=== PATIENT | male | born 1945 | race Caucasian/White ===

== ENCOUNTER 2018-12-20 09:17 | Inpatient (IN) | payer MEDICARE, SELFPAY ==
[2018-12-20 10:07] LABS: #Eosinphils 0.1 thou/uL (0.0-0.7); #Monocytes 0.9 thou/uL (0.11-0.59); %Basophils 0.2 % (0.0-1.0); %Eosinophils 0.7 % (0.0-10.0); %Lymphocytes 9.2 % (21.0-51.0); %Monocytes 8.1 % (0.0-10.0); %Neutrophils 81.8 % (42.0-75.0); Hemoglobin 12.5 g/dL (14.0-18.0); Mean Corpuscular Hemoglobin 32.3 pg (27.0-31.0); Mean Corpuscular Volume 97.8 fL (78.0-98.0); Mean Platelet Volume 7.3 fL (7.4-10.4); Platelet Count 346 thou/uL (130-400); RBC Distribution Width 12.4 % (11.5-14.5); Red Blood Cell (RBC) Count 3.87 mill/uL (4.70-6.10); White Blood Cell (WBC) Count 11.1 thou/uL (4.8-10.8)
[2018-12-20 10:28] LABS: ALT (SGPT) 7 U/L (8-55); AST (SGOT) 14 U/L (5-34); Albumin 3.5 g/dL (3.4-4.8); Alkaline Phosphatase 94 U/L (40-110); Anion Gap 17 mmol/L (10-20); BUN (Urea Nitrogen) 18 mg/dL (8.4-25.7); Bilirubin, Total 0.6 mg/dL (0.2-1.2); Calc. Creatinine Clearance 0 mL/min (70-130); Calcium 9.1 mg/dL (7.8-10.44); Carbon Dioxide 21 mmol/L (23-31); Chloride 104 mmol/L (98-107); Estimated GFR-MDRD 73; Globulin 3.8 g/dL (2.4-3.5); Glucose 86 mg/dL (83-110); Potassium 3.8 mmol/L (3.5-5.1); Protein, Total 7.3 g/dL (5.8-8.1); Sodium 138 mmol/L (136-145)
--- NOTE | 2018-12-20 11:01 | RAD ---
PORTABLE CHEST 1 VIEW: Date: 12/20/18 Time: 1003 hours HISTORY: Cough. FINDINGS/IMPRESSION: The heart size is prominent. There is elevation of the right hemidiaphragm. No lobar consolidation, p neumothoraces, vinay pulmonary edema, or pleural effusions are identified. POS: [facility]
--- NOTE | 2018-12-20 11:02 | RAD ---
RIGHT FOOT 3 VIEWS: Date: 12/20/18 HISTORY: Right foot pain. FINDINGS/IMPRESSION: No fracture, dislocation, or bony destruction is seen. There are posterior and plantar calcaneal spur s. POS: [facility]
--- NOTE | 2018-12-20 11:04 | RAD ---
LEFT FOOT 3 VIEWS: HISTORY: Left foot pain. FINDINGS/IMPRESSION: No fracture, dislocation, or bony destruction is seen. POS: [facility]
[2018-12-20] MEDS ORDERED: Piperacillin/Tazobactam 4.5 GM VIAL ONE (11:32)
[2018-12-20] MEDS ORDERED: Sodium Chloride 0.9% 100 ML ONE (11:32)
[2018-12-20] MEDS ORDERED: HYDROcodone/Acetaminophen 5/325 mg Tablet ONE (12:11)
[2018-12-20 13:19] VITALS: BMI 47.3
[2018-12-20] MEDS ORDERED: Ondansetron PF 4 MG/2 ML Vial IVP PRN (13:42)
[2018-12-20] MEDS ORDERED: HYDROcodone/Acetaminophen 5/325 mg Tablet PO PRN ×2 (13:42)
[2018-12-20] MEDS ORDERED: Acetaminophen 325 MG TAB PO PRN ×2 (13:42→14:15)
[2018-12-20] MEDS ORDERED: Ondansetron ODT 4 MG TAB SL PRN (13:42)
[2018-12-20 14:13] LABS: Lactic Acid 1.8 mmol/L (0.5-2.2)
[2018-12-20] MEDS ORDERED: Bisacodyl 10 MG SUPP PR PRN (14:15)
[2018-12-20] MEDS ORDERED: Morphine 2 MG/ML SYRINGE SLOW IVP PRN ×2 (14:15→17:13)
[2018-12-20] MEDS ORDERED: Guaifenesin DM 100-10/5 ML UDCUP PO PRN (14:15)
[2018-12-20] MEDS ORDERED: Senokot S 8.6-50 MG TAB PO PRN (14:15)
--- NOTE | 2018-12-20 15:20 | CT ---
CT of the lumbar spine: 12/20/2018 COMPARISON: None HISTORY: Fall 2 weeks ago, back pain, difficulty ambulating TECHNIQUE: Axial CT imaging at 2.5 mm intervals through the lumbar spine without contrast. Coronal an d sagittal reformatted imaging obtained. FINDINGS: Evaluation for central canal and/or neural foraminal stenosis is limited on routine CT exam ination. There is multifocal scattered atherosclerotic calcification of the abdominal aorta and its branches. No anterolisthesis or retrolisthesis is noted within the lumbar spine. The bones are diffusely demineralized. Age-indeterminate superior endplate fracture of T12 noted with approximately 40% loss of vertebral rhonda dy height centrally. L1 vertebral body appears unremarkable. There is a vacuum disc at L1-2. There is a age-indeterminate burst fracture of L2 with mild retropulsion of osseous fragments into the cent ral canal and probable mild central canal stenosis. There is approximately 40% loss of vertebral body height centrally at the L2 level. Age indeterminant anterior wedge compression fracture of L3 noted with approximately 45% loss of vert ebral body height anteriorly. Vacuum disc formation noted at L2-3 and L3-4. Age indeterminant burst fracture of L4 vertebral body noted with minimal retropulsion and approximate ly 33% loss of vertebral body height anteriorly. Minimal central canal stenosis suspected. Vacuum disc formation noted at L4-5. Age indeterminant burst fracture of L5 noted with minimal osseou s retropulsion and approximately 20% loss of vertebral body height anteriorly. There is multilevel lower lumbar spine facet hypertrophy, most prominent at L3-4, L4-5, and L5-S1 with bilateral neural f oraminal stenosis, right greater than left. IMPRESSION: Numerous age indeterminant spinal fractures as detailed above. Significant multilevel deg enerative change. To evaluate for underlying central canal and/or neural foraminal stenosis as well as to evaluate acuity of fracture deformities, lumbar spine MRI is suggested. Transcribed Date/Time: 12/20/2018 3:34 PM
--- NOTE | 2018-12-20 15:25 | CT ---
CT OF THE THORACIC SPINE: DATE: 12/20/2018. COMPARISON: None. HISTORY: Fall 2 weeks ago, difficulty ambulating. TECHNIQUE: Axial CT imaging at 2 mm intervals through the thoracic spine without contrast. Coronal and sagittal reformatted imaging obtained. FINDINGS: Evaluation for central canal and/or neural foraminal stenosis is limited on routine CT examination. There is an age-indeterminate mild superior endplate fracture of the T12 vertebral body. No significa nt anterolisthesis or retrolisthesis is seen within the thoracic spine. The imaged lung parenchyma appears grossly unremarkable. There is marked elevation of the right hemidiaphragm, only partially imaged on this exam. There is sc attered atherosclerotic calcification of the aortic arch and the descending thoracic aorta. There is multilevel mid and lower thoracic spine osteophyte formation laterally on the right, most pr ominent at the T6-7 through T9-10 levels. No discrete worrisome lytic or blastic bone lesion is seen. There is no osseous cause of significant central canal or neural foraminal stenosis within the thoracic spine. IMPRESSION: Age indeterminant mild superior endplate fracture of T12. Transcribed Date/Time: 12/20/2018 3:31 PM
--- NOTE | 2018-12-20 16:03 | ULT ---
Bilateral lower extremity arterial Doppler ultrasound: 12/20/2018 COMPARISON: None HISTORY: Peripheral vascular disease TECHNIQUE: Multiplanar grayscale sonographic imaging of the arterial structures of bilateral lower ex tremities obtained with color flow and spectral analysis FINDINGS: There are abnormal monophasic waveforms noted within bilateral CENTER PUNCH OPERATOR, profunda femoral artery , SFA, popliteal artery, JEN, STRAP BUCKLER, and DPA. VESSEL PEAK SYSTOLIC VELOCITY (cm/s) RIght CENTER PUNCH OPERATOR 142 Profunda femoral artery 68 SFA proximal 95 SFA mid 134 SFA distal 91 Popliteal artery 34 JEN 79 STRAP BUCKLER 81 DPA 85 Left CENTER PUNCH OPERATOR 215 Profunda femoral artery 92 SFA proximal 141 SFA mid 85 SFA distal 84 Popliteal artery 55 JEN 76 STRAP BUCKLER 69 DPA 85 IMPRESSION: Arterial structures of bilateral lower extremity is are patent. Abnormal monophasic wavef orms are noted throughout both lower extremity suggesting upstream hemodynamically significant stenosis, which could be within the pelvis or the abdominal aorta. Recommend CT angiogram of the abdo men, pelvis, and bilateral lower extremities utilizing a CT runoff protocol. Transcribed Date/Time: 12/20/2018 5:07 PM
--- NOTE | 2018-12-20 17:48 | HP ---
REASON FOR ADMISSION: Left lower extremity cellulitis. HISTORY OF PRESENTING ILLNESS: The patient gives history of having a blister on the dorsum of left foot a week back. He used a pin to pop it open. From then on, it has been draining serosanguineous material. He tried applying Neosporin like antibiotics. This did not help and the swelling and redness started to appear on his forefoot. This has gradually becoming bigger. He also tried hydrogen peroxide on the wound. Finally, none of this helped and he called his [id number] who is a cushion stuffer. The patient finally made it to the emergency room with his [id number]. No complaints of fever as such at home. The patient has not seen a doctor in almost 30 years. His last physical exam was when he was in the . PAST MEDICAL AND SURGICAL HISTORY: History of morbid obesity, likely venous stasis in both lower extremities. No prior colonoscopies. He also mentions that he fell 2 weeks back and has been having lower back problem with difficulty ambulation, and tobacco abuse. CURRENT MEDICATIONS: None. ALLERGIES: NO KNOWN DRUG ALLERGIES. PERSONAL HISTORY: Smokes 2 packs a day. Does not abuse alcohol or drugs. He lives alone. Has no children. The patient is . FAMILY HISTORY: Mother of colon cancer at the age of 80. Father in his 60s and he has had history of lung cancer. Code status is full. Power of patent attorney is his [id number], Mr. Dave Siu and number to reach him is [phone]. REVIEW OF SYSTEMS: CONSTITUTIONAL: Negative for weight loss or gain, ability to conduct usual activities. SKIN: Negative for rash, itching. EYES: Negative for double vision, pain. ENT/MOUTH: Negative for nose bleeding, neck stiffness, pain, tenderness. CARDIOVASCULAR: Negative for palpitations, dyspnea on exertion, orthopnea. RESPIRATORY: Negative for shortness of breath, wheezing, cough, hemoptysis, fever or night sweats. GASTROINTESTINAL: Negative for poor appetite, abdominal pain, heartburn, nausea , vomiting, constipation, or diarrhea. GENITOURINARY: Negative for urgency, frequency, dysuria, nocturia. MUSCULOSKELETAL: Negative for pain, swelling. NEUROLOGIC/PSYCHIATRIC: Negative for anxiety, depression. ALLERGY/IMMUNOLOGIC: Negative for skin rash, bleeding tendency. PHYSICAL EXAMINATION: GENERAL: The patient is a 73-year-old male who is currently not in any acute distress. VITAL SIGNS: Blood pressure 144/76, pulse 116 per minute, respiratory rate 20 per minute, temperature 98.8 degrees Fahrenheit, and saturating 95% on room air. NECK: Supple. No elevated JVD. HEENT: Eyes, extraocular muscles intact. Pupils reacting to light. Oral cavity, mucous membranes are moist. No exudates or congestion. CARDIOVASCULAR: S1 and S2 heard, regular rhythm. RESPIRATORY: Air entry 1+ bilateral. Scattered rhonchi plus. No rales or wheezes. ABDOMEN: Soft. Bowel sounds heard. No tenderness, rigidity, or guarding. EXTREMITIES: The patient has dependent edema in both lower extremities. There is a large ulceration seen on the dorsum of the left foot. This appears to be superficial. There is surrounding severe erythema and edema in the leg, which is extending up to his ankle and leg area. Peripheral pulses are barely palpable in the lower extremities, likely due to morbid obesity. No ischemic ulcers or gangrene seen. CENTRAL NERVOUS SYSTEM: No gross focal deficits noted. The patient is alert, awake, and oriented well. PSYCHIATRIC: The patient's mood is euthymic. No hallucinations or delusions. LABORATORY DATA: White count of 11, H and H 12 and 37, platelet count 346, MCV is 97 with 81% neutrophils. Electrolytes stable. Serum bicarb 21, BUN 18, and creatinine 1.0. Lactic acid 4.5, serum glucose 86. AST, ALT, and alkaline phosphatase within normal limits. BNP is 308. Albumin is 3.5. Please note, the patient has had a chest x-ray, bilateral foot x-ray, lumbar spine and thoracic spine CAT scans, and lower extremity ultrasounds done. All of them are resulted, but I cannot read the results on the CAT scan as the [facility] is not opening the result saying file is not found. He has had a 12-lead EKG done which shows normal sinus rhythm with underlying RBBB. CLINICAL IMPRESSION AND PLAN: The patient will be admitted to medical floor for left foot and leg cellulitis with dorsal ulcer which started a week back. He also has venous stasis likely in both lower extremities. He will be on vancomycin and Zosyn. Wound cultures will be obtained. We will place him on a small dose of Norvasc 10 mg p.o. daily for his hypertension. The patient has not had any workup done in the last 30 years. He has also had family history of colon cancer with no prior colonoscopy. Mr. Mendoza is morbidly obese. We will obtain lipid profile in the morning. HbA1c and TSH levels in the morning as well. We will also obtain an echo with 2D Doppler for LV function. Morphine p.r.n. for pain. We will continue to closely monitor him on medical floor. PT/OT evaluations will be requested. Rehab screen has also been placed as the patient has not ambulated. He has had a fall 2 weeks back and has severe low back pain. We will try to see the results of the same on [facility] when it allows me to see the results. Currently, I am unable to see any of his imaging results with [facility] saying the file is not found. Addendum: His CT lumbar spine revealed multiple spine fractures and T12 fracture. Neurosurgery consultation will be requested (Spoke to Ms.Mallery HINOJOSA) Job ID: [id number] MTDD
[2018-12-20] MEDS: Cyclobenzaprine 10 MG TAB PO SCH (20:03)
[2018-12-20] MEDS: Famotidine 20 MG TAB PO SCH (20:03)
[2018-12-20] MEDS: Piperacillin/Tazobactam 3.375 GM in Sodium Chloride 0.9% 100 ML IVPB SCH (21:28)
[2018-12-20] MEDS ORDERED: Vancomycin HCl 1 GM in Premix Bag 1 BAG IVPB SCH (23:00)
--- NOTE | 2018-12-21 02:42 | CON ---
DATE OF CONSULTATION: 12/20/2018 HISTORY OF PRESENT ILLNESS: The patient is a 73-year-old male, who was admitted by the Medicine Team for cellulitis of the left foot. The patient reported that 1 week ago he developed a blister along the dorsum of the left foot and attempted to pop it; however, since that time, he has had significant drainage, increased redness and pain. He also reports that he has had significant back pain over the last few months. Two weeks ago, he had a mechanical fall, and over the last several days, he has had difficulty ambulating. He is currently being treated for a cellulitis as well as significant lymphedema in bilateral lower extremities. Infectious Disease is also on board. He had a noncontrast lumbar spine and thoracic spine CT, which were notable for multiple age-indeterminate compression and burst fractures at T12 and from L2-L5. The patient denies any other recent trauma or injuries other than his mechanical fall 2 weeks ago. He reports his legs feel heavy and generally weak with walking. He denies any sensation changes. He denies any bowel or bladder dysfunction. PAST MEDICAL HISTORY: The patient has not seen a physician in the last 30 years. He is morbidly obese. CURRENT MEDICATIONS: He does not take any medications at home. ALLERGIES: HE HAS NO KNOWN DRUG ALLERGIES. SOCIAL HISTORY: He is a 2 pack-a-day smoker. He does not drink or use any drugs. FAMILY HISTORY: Noncontributory. REVIEW OF SYSTEMS: Per HPI. PHYSICAL EXAMINATION: GENERAL: On exam, the patient is resting comfortably, in no acute distress. VITAL SIGNS: His temperature is 97.6. His heart rate is 81. He is 93% on room air. BP is 117/71. HEENT: Head, normocephalic and atraumatic. Eyes; PERRLA, extraocular movements intact. ENT, oral mucosa is pink and moist. He has a normal voice. NECK: Nontender to palpation. No meningismus or nuchal rigidity. CARDIAC: Regular rate and rhythm. MUSCULOSKELETAL: The patient has significant pitting edema in bilateral lower extremities with surrounding erythema along bilateral ankles and distal extremities. There are changes consistent with venous stasis disease. NEUROLOGIC: The patient is A and O x4. He has good strength in all extremities. He is generally hyperreflexive throughout. No obvious focal deficits are appreciated when the patient examined in the bed. ASSESSMENT AND PLAN: The patient is a 73-year-old male, whom we have been asked to evaluate for progressive back pain and multiple thoracic and lumbar compression and burst fractures. He has had some difficulty ambulating and there is some retropulsion at the burst fracture at L2. His fractures were age indeterminate, although the patient did have a mechanical fall 2 weeks ago. We will plan to evaluate him further with noncontrast MRI of the thoracic and lumbar spine. I have also ordered a TLSO brace, which the patient should wear for out-of-bed activities. I am hopeful [facility] can fit him with a custom brace considering his morbid obesity. I have discussed this plan with Dr. Beaulieu, who is in agreement. We will follow MRI imaging. Job ID: [id number] MTDD
[2018-12-21] MEDS: Piperacillin/Tazobactam 3.375 GM in Sodium Chloride 0.9% 100 ML IVPB SCH ×2 (05:15→15:22)
[2018-12-21 05:58] LABS: #Eosinphils 0.1 thou/uL (0.0-0.7); #Lymphocytes 1.4 thou/uL (1.20-3.40); #Monocytes 0.9 thou/uL (0.11-0.59); %Basophils 0.4 % (0.0-1.0); %Eosinophils 1.8 % (0.0-10.0); %Lymphocytes 18.5 % (21.0-51.0); %Monocytes 11.7 % (0.0-10.0); %Neutrophils 67.7 % (42.0-75.0); Mean Corpuscular HGB CONC 33.1 g/dL (32.0-36.0); Mean Corpuscular Hemoglobin 32.5 pg (27.0-31.0); Mean Corpuscular Volume 98.2 fL (78.0-98.0); Mean Platelet Volume 7.5 fL (7.4-10.4); Platelet Count 283 thou/uL (130-400); RBC Distribution Width 12.6 % (11.5-14.5); Red Blood Cell (RBC) Count 3.09 mill/uL (4.70-6.10); White Blood Cell (WBC) Count 7.4 thou/uL (4.8-10.8)
[2018-12-21 06:07] LABS: Hemoglobin A1c 4.8 % (4.0-6.0)
[2018-12-21 06:20] LABS: Anion Gap 11 mmol/L (10-20); BUN (Urea Nitrogen) 16 mg/dL (8.4-25.7); Calc. Creatinine Clearance 183 mL/min (70-130); Calcium 8.3 mg/dL (7.8-10.44); Carbon Dioxide 24 mmol/L (23-31); Cardiac Risk 3.6 (Less than 4.5); Chloride 107 mmol/L (98-107); Cholesterol 87 mg/dl (< 200 Desired); Estimated GFR-MDRD Greater than 90; Glucose 76 mg/dL (83-110); HDL Cholesterol 24 mg/dL (>60 Neg Risk); LDL Cholesterol, Calculated 44 mg/dL; Potassium 3.8 mmol/L (3.5-5.1); Sodium 138 mmol/L (136-145); Triglycerides 95 mg/dL (Less than 150)
[2018-12-21 06:38] LABS: CEA, Serum 2.86 ng/mL (< or = 5.0); Thyroid Stimulating Hormone 1.2701 uIU/mL (0.35-4.94)
[2018-12-21 06:53] LABS: HBCM Index 0.05 S/CO (0-0.79); HBSAg Index 0.12 S/CO (0-0.99); Hep A IgM AB Non-Reactive (NonReactive); Hep A IgM S/CO 0.09 S/CO (0-0.79); Hep B Surf Ag Non-Reactive S/CO (NonReactive); Hep C IgG Ab Non-Reactive (NonReactive); Hep C Index 0.16 S/CO (0-0.79); Hepatitis B Core IgM Abs Non-Reactive (NonReactive)
[2018-12-21] MEDS: Cyclobenzaprine 10 MG TAB PO SCH ×2 (09:01→20:00)
[2018-12-21] MEDS: Enoxaparin Sodium 40 MG/0.4 ML SYRINGE SC SCH (09:03)
[2018-12-21] MEDS: Famotidine 20 MG TAB PO SCH ×2 (09:03→20:00)
--- NOTE | 2018-12-21 12:14 | MRI ---
MRI LUMBAR SPINE WITHOUT CONTRAST: INDICATION: Lumbar compression fractures. Back pain. COMPARISON: Comparison is made to CT lumbar spine 12/20/2018. FINDINGS: There is compression deformity seen at L2, L3, L4, and L5. There is edema within the L2 vertebra on STIR sequence consistent with probable acute or subacute injury. No significant edema seen at the ot her levels. There is a superior end plate deformity at T12 with loss of central height at T12. These findings ar e all stable from the CT of yesterday. At L1-2, there is a mild disk bulge. There is mild retropulsion of the posterior superior corner of the L2 vertebra combined with this mild diffuse bulge. This flattens the thecal sac and does result in mild to moderate central canal stenosis. At L2-3, there is mild disk bulge. Slight retropulsion of the posterior superior corner of L3. Thes e changes flatten the thecal sac and are associated with facet and ligamentous hypertrophy resulting in moderate central canal stenosis. At L3-4, diffuse disk bulge. Prominent facet and ligamentous hypertrophy. Moderate to severe centra l canal stenosis. Bilateral foraminal stenosis. At L4-5, diffuse disk bulge with associated facet and ligamentous hypertrophy results in moderate eugenie tral canal stenosis. Bilateral foraminal stenosis. L5-S1: Mild disk bulge flattens the thecal sac. Minimal central canal stenosis. IMPRESSION: Compression deformities as described above. Edema within the L2 vertebra on STIR sequence suggests a cute or subacute compression injury. Retropulsion and central canal stenosis at these levels as desc ribed above. POS: [facility]
[2018-12-21] MEDS: Lidocaine 5% Patch TD SCH (12:43)
[2018-12-21] MEDS: Nicotine 21 MG PATCH TD SCH (12:43)
--- NOTE | 2018-12-21 12:53 | PDOC.HOSPP ---
- Subjective Encounter Date: 12/21/18 Encounter Time: 09:00 Subjective: no sob. Pain is better in lower back with current meds - Objective Vital Signs & Weight: Vital Signs (12 hours) Temp Pulse Resp BP Pulse Ox 12/21/18 11:57 98.2 F 87 16 123/69 92 L 12/21/18 08:00 91 L 12/21/18 07:49 98.0 F 92 18 164/88 H 91 L 12/21/18 06:59 98.0 F 90 20 164/88 H 12/21/18 06:34 82 16 93 L 12/21/18 04:54 98.4 F 70 18 105/67 91 L Weight Admit Weight 330 lb 0.05 oz Weight 330 lb 0.05 oz I&O: 12/20/18 12/21/18 12/22/18 06:59 06:59 06:59 Intake Total 1450 320 Balance 1450 320 Result Diagrams: 12/21/18 04:56 12/21/18 04:56 Hospitalist ROS - Medication Medications: Active Medications Generic Name Dose Route Start Last Admin Trade Name Freq PRN Reason Stop Dose Admin Albuterol/Ipratropium 3 ml 12/20/18 19:00 12/21/18 06:34 Duoneb NEB 3 ml [id number] WILL Administration Cyclobenzaprine HCl 5 mg 12/20/18 21:00 12/21/18 09:01 Flexeril PO 5 mg BID WILL Administration Enoxaparin Sodium 40 mg 12/21/18 09:00 12/21/18 09:03 Lovenox SC 40 mg 0900 WILL Administration Famotidine 20 mg 12/20/18 21:00 12/21/18 09:03 Pepcid PO 20 mg BID WILL Administration Piperacillin Sod/Tazobactam 100 mls @ 200 mls/hr 12/20/18 22:00 12/21/18 05: 15 Sod 3.375 gm/ Sodium Chloride IVPB 100 mls Q8HR WILL Administration Vancomycin HCl 2 gm/ Sodium 500 mls @ 250 mls/hr 12/20/18 23:00 12/20/18 22: 30 Chloride IVPB 500 mls 1100,2300 WILL Administration - Exam General Appearance: NAD, awake alert Eye: PERRL, anicteric sclera ENT: no oropharyngeal lesions, moist mucosa Neck: supple, no JVD Heart: RRR, no murmur Respiratory: no wheezes, no rales Gastrointestinal: soft, non-tender, non-distended, normal bowel sounds Extremities: 2+ LE edema Extremities - other findings: erythema+ left foot Neurological: cranial nerve grossly intact, no focal deficits Psychiatric: normal affect, A&O x 3 Hosp A/P (1) Cellulitis of left lower extremity Code(s): L03.116 - CELLULITIS OF LEFT LOWER LIMB Status: Acute (2) Compression fx, lumbar spine Code(s): S32.000A - WEDGE COMPRESSION FRACTURE OF UNSP LUMBAR VERTEBRA, INIT Status: Acute (3) Morbid obesity with BMI of 45.0-49.9, adult Code(s): E66.01 - MORBID (SEVERE) OBESITY DUE TO EXCESS CALORIES; Z68.42 - BODY MASS INDEX (BMI) 45.0-49.9, ADULT Status: Chronic (4) HTN (hypertension) Code(s): I10 - ESSENTIAL (PRIMARY) HYPERTENSION Status: Acute Qualifiers: Hypertension type: essential hypertension Qualified Code(s): I10 - Essential (primary) hypertension (5) Venous stasis Code(s): I87.8 - OTHER SPECIFIED DISORDERS OF VEINS Status: Chronic (6) Tobacco abuse Code(s): Z72.0 - TOBACCO USE Status: Chronic - Plan is on vanc and zosyn, wound care, await culture results nsx consultation for multiple vertebral fractures, MRI results noted, tslo brace has been ordered lidocaine tts, flexeril, ultram, morphine prn cozaar 50mg daily hemostable likely will need rehab for dc plan
[2018-12-21] MEDS ORDERED: Prevnar 13-Val Conj/PF 0.5 ML SYRINGE IM ONE (13:45)
[2018-12-21] MEDS ORDERED: FLU VACC TS2019-20(65YR UP)/PF 180 MCG/0.5 ML SYRINGE IM ONE (13:45)
--- NOTE | 2018-12-21 16:33 | CON ---
DATE OF CONSULTATION: The patient was seen and examined. I agree with Kylah Francis's evaluation of 12/20/2018. The patient is a 73-year-old man admitted with severe bilateral lymphedema in the legs and cellulitis. He is also complaining of back pain and CT imaging of the thoracic and lumbar spines reveal multiple compression fractures, presumably of multiple ages. The patient has motor function throughout the lower extremities, but is somewhat slowed in this regard. He complains his legs feel heavy. The amount of swelling and lymphedema is quite obvious. I visited with the Orthotics provider and can see there are going to be very difficult challenges getting any brace to fit him given his extremely large body habitus. We will do the best we can presumably with a more flexible corset. I am not terribly optimistic that he will be able to be compliant with the brace, but I think it is reasonable to try it, if we can get one to fit. MRIs were recommended by the radiologist and we have ordered these, but he may not fit in the scanner. If these can be done, we will follow up on the results, but if these cannot be done, he can continue to safely be mobilized and treated for his cellulitis. He is obviously not a surgical candidate in any event. Discussed at length with the patient. Job ID: [id number]
--- NOTE | 2018-12-21 18:55 | CON ---
DATE OF CONSULTATION: 12/21/2018 REASON FOR CONSULTATION: Lower extremity inflammatory changes. HISTORY OF PRESENT ILLNESS: A 73-year-old, who declares not having any past medical history, but obviously he has many conditions just not yet diagnosed, who presented with worsening pain in the lower extremities, particularly on the left side, associated with swelling and inflammatory changes. The patient lives in a house here in [place] by himself and he got some significant mobility impairment. He uses a walker. He does not get out of the house. He smokes daily and has dyspnea chronically and lung symptoms. Most likely has chronic lung disease, not yet diagnosed. He denied any perception of fever or chills. No headaches, visual symptoms, sore throat, odynophagia, or dysphagia. Some cough, but no sputum production. No chest pain. No abdominal pain. He got some maceration in the intertriginous areas, which is chronic as well as intergluteal regions. Does not have any dysuria, but he does have some delayed voiding. Constipation noted, but not diarrhea or bleeding. Chronic joint pains, particularly in the lower back and knees and ankles. MEDICAL HISTORY: He states that he never goes to physician and does not have any prior diagnosis reportedly. He does have obesity, venous stasis, and a couple of falls in the recent past with chronic back pain. MEDICATIONS: Had not been taking any medication. At the moment, he is on Tylenol, DuoNeb, Dulcolax, Flexeril, Lovenox, Pepcid, morphine, Zosyn, and vancomycin. ALLERGIES: HE IS NOT ALLERGIC TO ANYTHING. 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 He is retired now and is . Smokes two packs daily. Does not drink much. Does not have kids. FAMILY HISTORY: Colon cancer, lung cancer. PHYSICAL EXAMINATION: VITAL SIGNS: T-max 98.6, blood pressure 120/53, pulse 83, respirations 18, O2 saturation 91% to 95%. SKIN: Shows stasis dermatitis in the lower extremities in quite symmetric distribution. There is an area of tenderness and blistering in the dorsal aspect of the left foot, starting at the midfoot, extending towards the forefoot area. There is erythema, which spans over the dorsal aspect of the left foot. There is tenderness on palpation. Some early blistering in the left and the right lower extremity anterior greene area, related to venous insufficiency and stasis dermatitis and lymphedema. The patient has marked intertriginous maceration and erythema in the area below the abdominal fold, groin, and intergluteal regions. Peripheral IV access. He is voiding in the toilet. HEENT: Ocular movements conjugate. Conjunctivae normal. Nasal passages are patent. Oral cavity with quite a few teeth in place, although a few ones missing. There is significant gum disease. No oral mucosal lesion otherwise. NECK: Without jugular vein distention. Supple. No thyromegaly. LUNGS: With diminished breath sounds at bases. Scattered faint wheezing. HEART: S1 and S2. Regular rate. Diminished heart sounds. No S3 or S4. ABDOMEN: With very prominent panniculus, protuberant with a large abdominal fold, but no tenderness. No evidence of ascites or organomegaly. : No bladder distention. EXTREMITIES: Evidence of osteoarthrosis in both knees and ankles. Pulses are 1 + in dorsalis pedis. Onychodystrophy is noted. He moves all extremities with limitations, imposed by his chronic arthrosis and low back pain. NEUROLOGIC: His cognitive function appears to be intact. He has good recollection. Speech is normal. LABORATORY DATA: Sodium 138, creatinine 1.0. Transaminases, alkaline phosphatase, bilirubin within normal limits. BNP 308. Albumin 3.5, globulin 3.8. White cell count 11.1 and now 7.4, hemoglobin 12.5 and now 10, platelets 283 with 81% neutrophils and now 67%. Hemoglobin A1c 4.8. Hepatitis serology nonreactive. Two sets of blood cultures; no growth thus far. There is a sample from a dorsal aspect of the foot, the exposed skin area, no growth at 24 hours. IMAGING STUDIES: Thoracic and lumbar spine with a few areas of compression fracture. There is an MRI, which showed findings consistent with early compression fracture of the lumbar spine, one of the vertebrae. Foot x-ray showed no fracture, dislocation, or bony destruction. There is a chest x-ray with prominent heart size. No infiltrates or effusions. ASSESSMENT: 1. Morbid obesity, likely chronic obstructive pulmonary disease/bronchitis. 2. Venous insufficiency, lymphedema, stasis dermatitis. 3. Blistering, left foot, dorsal aspect; areas of tenderness around with suggestive cellulitis. There is one small puncture area in the bottom aspect of the fifth toe MPJ site. I am not sure this reflects a deep penetration or it is just superficial. DISCUSSION: The patient certainly does not have any prior diagnosis because of lack of attention to his own health and he suffers from a number of chronic illnesses, probably has steatohepatitis in addition to his chronic lung disease, probably has some element of cardiomyopathy as well and peripheral vascular disease. The ultrasound was suggestive of obstruction of the arterial inflow of the larger vessels in the lower extremity and a CT angiogram was recommended by radiologist. The lower extremity changes are mostly due to stasis dermatitis and lymphedema and edema, but there is an element of cellulitis in the left foot and distal leg. We will switch him to Rocephin since beta-hemolytic streptococci are more likely culprits here and we will see how he progresses. May need an MRI of the foot depending on clinical progress. Management of intertrigo in groin/abd fold/ inter-gluteal regions as usual with topical antimicrobial/antifungal agents. He needs to quit smoking and he is probably going to reach a phase of rapid decline in his functional state and health. Should be able to switch to oral antimicrobial therapy. The L 5th MTP join skin site will need to be monitored and may need further imaging of that area depending on progress. Job ID: [id number] [facility]
[2018-12-21] MEDS: cefTRIAXone\\ROCEPHIN 1 GM in Sodium Chloride 0.9% 100 ML IVPB SCH (19:14)
[2018-12-21] MEDS: Lidocaine Patch Removal 1 EACH TOP SCH (22:47)
--- NOTE | 2018-12-22 08:32 | PRG ---
DATE OF SERVICE: 12/22/2018 SUBJECTIVE: The patient underwent MRI evaluation yesterday for further evaluation of his progressive back pain, multiple compression fractures, and difficulty walking. His MRI is notable for age-indeterminate compression fractures at T12 and L2 through L5. There is some retropulsion with central canal stenosis most pronounced at L3-L4 and L4-L5. I visited with the patient this morning. He has been fitted with a TLSO brace, which he is wearing for all out of bed activities. He has no complaints of pain at this time. OBJECTIVE: GENERAL: On exam, he is comfortable, in no acute distress. EXTREMITIES: He has free active range of motion of all extremities. No focal motor weakness is appreciated in the bed. ASSESSMENT AND PLAN: The patient does have multiple compression fractures and stenosis evident on his MRI. However, considering his morbid obesity and comorbid conditions, we are not recommending any surgical intervention at this time. Recommend treatment of the fractures with the TLSO brace, which he has been fitted with, which he should wear for all out of bed activities. We also believe that he would benefit from inpatient rehabilitation. We will plan to follow up with the patient in approximately 1 month with repeat evaluation and x-rays at that time. Please reach out to Neurosurgery for additional questions or concerns. Job ID: [id number]
[2018-12-22] MEDS: Famotidine 20 MG TAB PO SCH ×2 (09:17→20:00)
[2018-12-22] MEDS: Enoxaparin Sodium 40 MG/0.4 ML SYRINGE SC SCH (09:21)
[2018-12-22] MEDS: Cyclobenzaprine 10 MG TAB PO SCH ×2 (09:21→20:00)
[2018-12-22] MEDS: Nicotine 21 MG PATCH TD SCH (09:21)
[2018-12-22] MEDS: Lidocaine 5% Patch TD SCH (09:21)
--- NOTE | 2018-12-22 13:16 | PDOC.HOSPP ---
- Subjective Encounter Date: 12/22/18 Encounter Time: 09:15 Subjective: back pain is better, says his left foot hurts a bit this am no sob, ambulated better with PT - Objective Vital Signs & Weight: Vital Signs (12 hours) Temp Pulse Resp BP Pulse Ox 12/22/18 11:34 98.6 F 107 H 18 142/76 H 92 L 12/22/18 08:00 93 L 12/22/18 07:54 98.5 F 113 H 18 124/64 93 L 12/22/18 06:58 115 H 16 96 Weight Admit Weight 330 lb 0.05 oz Weight 330 lb 0.05 oz I&O: 12/21/18 12/22/18 12/23/18 06:59 06:59 06:59 Intake Total 1450 1560 120 Balance 1450 1560 120 Result Diagrams: 12/21/18 04:56 12/21/18 04:56 Hospitalist ROS - Medication Medications: Active Medications Generic Name Dose Route Start Last Admin Trade Name Freq PRN Reason Stop Dose Admin Albuterol/Ipratropium 3 ml 12/20/18 19:00 12/22/18 06:58 Duoneb NEB 3 ml [id number] WILL Administration Cyclobenzaprine HCl 5 mg 12/20/18 21:00 12/22/18 09:21 Flexeril PO 5 mg BID WILL Administration Enoxaparin Sodium 40 mg 12/21/18 09:00 12/22/18 09:21 Lovenox SC 40 mg 0900 WILL Administration Famotidine 20 mg 12/20/18 21:00 12/22/18 09:17 Pepcid PO 20 mg BID WILL Administration Ceftriaxone Sodium 1 gm/ 100 mls @ 200 mls/hr 12/21/18 18:00 12/21/18 19:14 Sodium Chloride IVPB 100 mls 1800 WILL Administration Lidocaine 2 patch 12/21/18 09:00 12/22/18 09:21 Lidoderm 5% Patch TD 2 patch DAILY WILL Administration Miscellaneous Medication 1 each 12/21/18 21:00 12/21/18 22:47 Lidocaine Patch Removal TOP 1 each 2100 WILL Administration Nicotine 21 mg 12/21/18 09:00 12/22/18 09:21 Nicoderm Patch TD 21 mg DAILY WILL Administration - Exam General Appearance: NAD, awake alert Eye: PERRL, anicteric sclera ENT: no oropharyngeal lesions, moist mucosa Neck: supple, no JVD Heart: RRR, no murmur Respiratory: no wheezes, no rales, rhonchi Gastrointestinal: soft, non-tender, non-distended, normal bowel sounds Extremities: no cyanosis, 1+ LE edema Extremities - other findings: left foot dorsum in dressing Neurological: cranial nerve grossly intact, no focal deficits Psychiatric: normal affect, A&O x 3 Hosp A/P (1) Cellulitis of left lower extremity Code(s): L03.116 - CELLULITIS OF LEFT LOWER LIMB Status: Acute (2) Compression fx, lumbar spine Code(s): S32.000A - WEDGE COMPRESSION FRACTURE OF UNSP LUMBAR VERTEBRA, INIT Status: Acute (3) Morbid obesity with BMI of 45.0-49.9, adult Code(s): E66.01 - MORBID (SEVERE) OBESITY DUE TO EXCESS CALORIES; Z68.42 - BODY MASS INDEX (BMI) 45.0-49.9, ADULT Status: Chronic (4) HTN (hypertension) Code(s): I10 - ESSENTIAL (PRIMARY) HYPERTENSION Status: Acute Qualifiers: Hypertension type: essential hypertension Qualified Code(s): I10 - Essential (primary) hypertension (5) Tobacco abuse Code(s): Z72.0 - TOBACCO USE Status: Chronic - Plan is on ceftriaxone, wound care, await culture results nsx has seen pt for multiple vertebral fractures, tslo brace has been ordered lidocaine tts, flexeril, ultram, morphine prn cozaar 50mg daily hemostable likely will need rehab for dc plan echo for lv function
[2018-12-22] MEDS: cefTRIAXone\\ROCEPHIN 1 GM in Sodium Chloride 0.9% 100 ML IVPB SCH (19:01)
[2018-12-22] MEDS: Lidocaine Patch Removal 1 EACH TOP SCH (21:29)
[2018-12-23 06:04] LABS: #Eosinphils 0.1 thou/uL (0.0-0.7); #Monocytes 1.1 thou/uL (0.11-0.59); #Neutrophils 6.2 thou/uL (1.40-6.50); %Basophils 0.2 % (0.0-1.0); %Eosinophils 1.3 % (0.0-10.0); %Lymphocytes 11.8 % (21.0-51.0); %Monocytes 13.3 % (0.0-10.0); %Neutrophils 73.5 % (42.0-75.0); Hemoglobin 10.4 g/dL (14.0-18.0); Mean Corpuscular HGB CONC 31.7 g/dL (32.0-36.0); Mean Corpuscular Hemoglobin 31.7 pg (27.0-31.0); Mean Platelet Volume 7.7 fL (7.4-10.4); Platelet Count 274 thou/uL (130-400); RBC Distribution Width 12.5 % (11.5-14.5); Red Blood Cell (RBC) Count 3.28 mill/uL (4.70-6.10); White Blood Cell (WBC) Count 8.4 thou/uL (4.8-10.8)
[2018-12-23 06:35] LABS: Anion Gap 15 mmol/L (10-20); BUN (Urea Nitrogen) 10 mg/dL (8.4-25.7); Calc. Creatinine Clearance 199 mL/min (70-130); Calcium 8.5 mg/dL (7.8-10.44); Carbon Dioxide 18 mmol/L (23-31); Chloride 107 mmol/L (98-107); Estimated GFR-MDRD Greater than 90; Glucose 82 mg/dL (83-110); Iron 37 ug/dL (65-175); Iron Binding Capacity, Total 188 mcg/dL (261-462); Potassium 4.1 mmol/L (3.5-5.1); Sodium 136 mmol/L (136-145)
[2018-12-23 06:36] LABS: Ferritin 300.19 ng/mL (22-322)
[2018-12-23] MEDS: Enoxaparin Sodium 40 MG/0.4 ML SYRINGE SC SCH (09:26)
[2018-12-23] MEDS: Nicotine 21 MG PATCH TD SCH (09:27)
[2018-12-23] MEDS: Lidocaine 5% Patch TD SCH (09:27)
[2018-12-23] MEDS: Cyclobenzaprine 10 MG TAB PO SCH ×2 (09:27→20:15)
[2018-12-23] MEDS: Famotidine 20 MG TAB PO SCH ×2 (09:27→20:15)
--- NOTE | 2018-12-23 10:34 | PDOC.HOSPP ---
- Subjective Encounter Date: 12/23/18 Encounter Time: 10:30 Subjective: Patient seen and examined for gen weakness with Cellulitis. No new complaints. No overnight events - Objective Vital Signs & Weight: Vital Signs (12 hours) Temp Pulse Resp BP Pulse Ox 12/23/18 07:16 98.6 F 107 H 18 125/71 94 L 12/23/18 06:46 106 H 16 12/23/18 00:13 96 14 93 L Weight Admit Weight 330 lb 0.05 oz Weight 330 lb 0.05 oz I&O: 12/22/18 12/23/18 12/24/18 06:59 06:59 06:59 Intake Total 1560 1080 Balance 1560 1080 Result Diagrams: 12/23/18 05:24 12/23/18 05:24 Hospitalist ROS - Review of Systems Respiratory: denies: cough, dry, shortness of breath, hemoptysis, SOB with excertion, pleuritic pain, sputum, wheezing, other Cardiovascular: denies: chest pain, palpitations, orthopnea, paroxysmal noc. dyspnea, edema, light headedness, other - Medication Medications: Active Medications Generic Name Dose Route Start Last Admin Trade Name Freq PRN Reason Stop Dose Admin Albuterol/Ipratropium 3 ml 12/20/18 19:00 12/23/18 06:46 Duoneb NEB 3 ml [id number] WILL Administration Cyclobenzaprine HCl 5 mg 12/20/18 21:00 12/23/18 09:27 Flexeril PO 5 mg BID WILL Administration Enoxaparin Sodium 40 mg 12/21/18 09:00 12/23/18 09:26 Lovenox SC 40 mg 0900 WILL Administration Famotidine 20 mg 12/20/18 21:00 12/23/18 09:27 Pepcid PO 20 mg BID WILL Administration Ceftriaxone Sodium 1 gm/ 100 mls @ 200 mls/hr 12/21/18 18:00 12/22/18 19:01 Sodium Chloride IVPB 100 mls 1800 WILL Administration Lidocaine 2 patch 12/21/18 09:00 12/23/18 09:27 Lidoderm 5% Patch TD 2 patch DAILY WILL Administration Miscellaneous Medication 1 each 12/21/18 21:00 12/22/18 21:29 Lidocaine Patch Removal TOP 1 each 2100 WILL Administration Nicotine 21 mg 12/21/18 09:00 12/23/18 09:27 Nicoderm Patch TD 21 mg DAILY WILL Administration - Exam General Appearance: NAD Neck: supple, no JVD Heart: RRR, no gallops Respiratory: CTAB, no rales Gastrointestinal: soft, non-tender, normal bowel sounds Extremities: 2+ LE edema Extremities - other findings: Foot dressing + Hosp A/P - Plan DVT proph w/lovenox Severe Sepsis due to LLE Cellulitis Lactic acidosis Vertebral Compression fracture HTN Physical decontioning Chronic Anemia Tobacco dep Morbid Obesity BMI 47 ?REE Folic Acid def ?PVD - refused CTA PLAN: Cont Ceftriaxone per ID Cont TLSO Replace Folic acid Await Rehab placement
[2018-12-23] MEDS ORDERED: Nicotine 14 MG PATCH TD PRN (10:38)
[2018-12-23] MEDS: traMADol HCl 50 MG TAB PO PRN ×2 (12:04→20:18)
[2018-12-23] MEDS: Calcium Carbonate + Vit D 1 TAB PO SCH (17:35)
[2018-12-23] MEDS: cefTRIAXone\\ROCEPHIN 1 GM in Sodium Chloride 0.9% 100 ML IVPB SCH (17:35)
[2018-12-23] MEDS: Folic Acid 1 MG TAB PO SCH (20:15)
[2018-12-23] MEDS: Nystatin Powder 15 GM BOT TOP SCH (20:16)
[2018-12-23] MEDS: Lidocaine Patch Removal 1 EACH TOP SCH (20:24)
--- NOTE | 2018-12-23 23:11 | EKG ---
Test Reason : Blood Pressure : / mmHG Vent. Rate : 096 BPM Atrial Rate : 096 BPM P-R Int : 178 ms QRS Dur : 126 ms QT Int : 396 ms P-R-T Axes : 059 051 012 degrees QTc Int : 500 ms Sinus rhythm with Premature atrial complexes with Abberant conduction Right bundle branch block Abnormal ECG No previous ECGs available Confirmed by GIA SILVA M.D. ([id number] on 12/23/2018 11:10:47 PM Referred By: LELIA Confirmed By:GIA SILVA M.D.
[2018-12-24] MEDS: Famotidine 20 MG TAB PO SCH ×2 (08:29→19:28)
[2018-12-24] MEDS: Saccharomyces boulardii 250 MG CAP PO SCH (08:29)
[2018-12-24] MEDS: Multivit, Therapeutic 1 TAB PO SCH (08:29)
[2018-12-24] MEDS: Cyclobenzaprine 10 MG TAB PO SCH ×2 (08:29→19:28)
[2018-12-24] MEDS: Aspirin 81 mg Enteric Coated Tablet PO SCH (08:29)
[2018-12-24] MEDS: Calcium Carbonate + Vit D 1 TAB PO SCH ×2 (08:29→16:12)
[2018-12-24] MEDS: Enoxaparin Sodium 40 MG/0.4 ML SYRINGE SC SCH (08:30)
[2018-12-24] MEDS: Folic Acid 1 MG TAB PO SCH ×2 (08:30→19:28)
[2018-12-24] MEDS: Lidocaine 5% Patch TD SCH (08:35)
[2018-12-24] MEDS: Nystatin Powder 15 GM BOT TOP SCH ×2 (08:43→21:08)
--- NOTE | 2018-12-24 08:57 | PDOC.PALCO ---
Palliative Care Consult - Consult Details Requesting Physician: Dr Gambino Reason for Consult: goals of care, advance directives assistance, family support , complex decision-making Family Members Present: None. Confirmed that sister and her is requested MPOA - Pertinent HPI Morbidly obese. Patient had a blister on his foot a week ago and used a "pin" to open it. Increase in wound size with increase in drainage and erythema. Presented to the emergency room after his brother in law (who is a vet) checked on him and subsequently initiated er visit. In history patient relays onset of back pain to lumbar region from fall two weeks prior, limited ability to perform ADL's secondary to obesity. - Pertinent PMH Morbid obesity, venous stasis, - Social History Smoking Status: Current every day smoker Smoking: greater than 1 pack/day Alcohol Use: occasional, other (Reports prior heavy use) Drug Use History: none Living Situation: independent (, no care providers) - Allergies Allergies/Adverse Reactions: Allergies Allergy/AdvReac Type Severity Reaction Status Date / Time No Known Allergies Allergy Verified 12/20/18 13:24 - Subjective Resting, poor hygiene. Short of breath with minimal exertion, limited mobility. Lower back pain 05/12 ROS: 10 point review negative with the exception of the above mentioned. - Objective Vital Signs: Vital Signs - Most Recent Temp Pulse Resp BP Pulse Ox 98.4 F 98 32 H 148/67 H 98 12/24/18 08:03 12/24/18 08:03 12/24/18 08:03 12/24/18 08:03 12/24/18 08:03 - Physical Exam Constitutional: NAD Deviation from normal: Poor hygiene HEENT: moist MMs, sclera anicteric, EOMI Deviation from normal: Push of speech with extensive conversation, difficult to ascultate Cardiovascular: RRR, no rub Gastrointestinal: soft, non-tender, positive bowel sounds Musculoskeletal: edema present Deviation from normal: radial pulses present Psychiatric: normal affect, A&O x 3 Skin: normal turgor Deviation from normal: wound to left foot erythema left leg - Problem List (1) Palliative care encounter Code(s): Z51.5 - ENCOUNTER FOR PALLIATIVE CARE Current Visit: Yes Status: Acute (2) Cellulitis of left lower extremity Code(s): L03.116 - CELLULITIS OF LEFT LOWER LIMB Current Visit: Yes Status: Acute (3) Morbid obesity with BMI of 45.0-49.9, adult Code(s): E66.01 - MORBID (SEVERE) OBESITY DUE TO EXCESS CALORIES; Z68.42 - BODY MASS INDEX (BMI) 45.0-49.9, ADULT Current Visit: Yes Status: Chronic (4) Tobacco abuse Code(s): Z72.0 - TOBACCO USE Current Visit: Yes Status: Chronic (5) Physical deconditioning Code(s): R53.81 - OTHER MALAISE Current Visit: Yes Status: Acute - Plan/Recommendations Plan: Initial visit with patient, Hayes Cameron RNinspector aide also present. 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 Lives alone in an apartment, difficulty in ADL's and has become dependent recently on others for transportation. *Desires to have Sister and her "Robbin" be his MPOA. A Cristobal with Palliative care to complete with patient *CM on unit is working with patient for discharge to rehab potentially * patient states he will contact his apartment complex and request a handicap/ accessible apartment *Evaluate current pain medications and assess for therapeutic threshold to mitigate pain and promote safety paired with optimal functional level *Goal is to return home to live independently and be able to drive himself to store and appointments. [45] minutes spent on this encounter with >50% of the time in counseling and coordination of care. Thank you for this very appropriate consult.
--- NOTE | 2018-12-24 09:06 | PDOC.HOSPP ---
- Subjective Encounter Date: 12/24/18 Encounter Time: 09:04 Subjective: Patient seen and examined for cellulitis/back pain. Pain controlled. No fever. No new complaints. No overnight events - Objective Vital Signs & Weight: Vital Signs (12 hours) Temp Pulse Resp BP Pulse Ox 12/24/18 08:03 98.4 F 98 32 H 148/67 H 98 12/24/18 07:28 105 H 18 94 L 12/24/18 00:31 96 14 92 L Weight Admit Weight 330 lb 0.05 oz Weight 330 lb 0.05 oz I&O: 12/23/18 12/24/18 12/25/18 06:59 06:59 06:59 Intake Total 1080 480 Balance 1080 480 Result Diagrams: 12/23/18 05:24 12/23/18 05:24 Hospitalist ROS - Review of Systems Respiratory: denies: cough, dry, shortness of breath, hemoptysis, SOB with excertion, pleuritic pain, sputum, wheezing, other Cardiovascular: denies: chest pain, palpitations, orthopnea, paroxysmal noc. dyspnea, edema, light headedness, other - Medication Medications: Active Medications Generic Name Dose Route Start Last Admin Trade Name Freq PRN Reason Stop Dose Admin Albuterol/Ipratropium 3 ml 12/20/18 19:00 12/24/18 07:28 Duoneb NEB 3 ml [id number] WILL Administration Aspirin 81 mg 12/24/18 09:00 12/24/18 08:29 Ecotrin PO 81 mg DAILY WILL Administration Calcium/Vitamin D 1 tab 12/23/18 17:00 12/24/18 08:29 Caltrate 600 + Vit D PO 1 tab BID-WM WILL Administration Cyclobenzaprine HCl 5 mg 12/20/18 21:00 12/24/18 08:29 Flexeril PO 5 mg BID WILL Administration Enoxaparin Sodium 40 mg 12/21/18 09:00 12/24/18 08:30 Lovenox SC 40 mg 0900 WILL Administration Famotidine 20 mg 12/20/18 21:00 12/24/18 08:29 Pepcid PO 20 mg BID WILL Administration Folic Acid 1 mg 12/23/18 21:00 12/24/18 08:30 Folvite PO 1 mg BID WILL Administration Ceftriaxone Sodium 1 gm/ 100 mls @ 200 mls/hr 10/19/19 18:00 12/23/18 17:35 Sodium Chloride IVPB 100 mls 1800 WILL Administration Lidocaine 2 patch 12/21/18 09:00 12/24/18 08:35 Lidoderm 5% Patch TD 2 patch DAILY WILL Administration Miscellaneous Medication 1 each 12/21/18 21:00 12/23/18 20:24 Lidocaine Patch Removal TOP Not Given 2100 WILL Multivitamins 1 tab 12/24/18 09:00 12/24/18 08:29 Theragran PO 1 tab DAILY WLIL Administration Nystatin 0 gm 12/23/18 21:00 12/24/18 08:43 Mycostatin Powder TOP 1 applic BID WILL Administration Saccharomyces Boulardii 250 mg 12/24/18 09:00 12/24/18 08:29 Florastor PO 250 mg DAILY WILL Administration Tramadol HCl 50 mg 12/20/18 14:15 12/23/18 20:18 Ultram PO 50 mg Q6H PRN Administration Pain - Exam General Appearance: NAD Neck: supple, no JVD Heart: RRR, no gallops Respiratory: CTAB, no wheezes, no rales Gastrointestinal: soft, non-tender, normal bowel sounds Extremities: no edema Extremities - other findings: wound dressing + Hosp A/P - Plan Severe Sepsis due to LLE Cellulitis - on IV Ceftriaxone Vertebral Compression fracture HTN Physical decontioning Lactic acidosis on admission - resolved Chronic Anemia Tobacco dep Morbid Obesity BMI 47 ?REE Folic Acid def - started on replacement ?PVD - refused CTA - started on low dose ASA Tobacco dep PLAN: Cont Ceftriaxone per ID - Will d/w Dr Nelson on outpt Atbx Cont wound care Cont TLSO AM labs Sleep study as outpt Await Rehab placement Keflex 250 mg BID x 6 months per ID completion of Atbx
--- NOTE | 2018-12-24 13:20 | PRG ---
DATE OF SERVICE: 12/24/2018 SUBJECTIVE: The patient is feeling better. He is still a little bit dyspneic, not much pain in the left foot. Able to eat. No diarrhea or genitourinary symptoms. OBJECTIVE: VITAL SIGNS: His vital signs showed normal temperature, blood pressure 150/66, pulse 73, O2 saturation anywhere from 92% to 94%. GENERAL: Appears chronically ill, in no distress, oriented. HEENT: Ocular movements are conjugate. Conjunctivae are normal. Oral cavity, a bit dry. LUNGS: Symmetric air entry. A few rhonchi here and there. HEART: Irregular rate and rhythm. S1, S2 without murmurs. ABDOMEN: With a very protuberant abdominal fold. Intertriginous area below the abdomen has improved markedly. EXTREMITIES: Also, the area of cellulitis of left foot has improved markedly. LABORATORY DATA: White cell count is down to 8.4, hemoglobin 10.4, and platelets 274. Creatinine 0.69. Microbiology with Streptococcus gordonii from the foot. ASSESSMENT AND DISCUSSION: Morbid obesity, chronic obstructive pulmonary disease, venous insufficiency, lymphedema, stasis dermatitis, cellulitis, and blistering of left foot with marked improvement. The area of concern in the distal left forefoot does not seem to be an issue anymore. At this point, we will transition him to oral Pen-VK 250 mg twice daily as a prophylactic regimen. Continue local wound care. Compressive stockings. He does have palpable dorsalis pedis pulses in both feet. He will need to continue with the management of the intertriginous areas. Job ID: [id number]
--- NOTE | 2018-12-24 16:31 | DIS ---
DATE OF ADMISSION: 12/20/2018 DATE OF DISCHARGE: 12/24/2018 DISCHARGE DISPOSITION: Inpatient rehabilitation. FOLLOWUP: 1. Follow up with primary care physician in 1 week. 2. The patient was advised to contact [facility] for establishing primary care. 3. Follow up with Infectious Disease, Dr. Nelson. 4. Follow up with Dr. Raheem Beaulieu in 2 weeks. DIAGNOSTIC TESTS: WBC on admission was 11.1, at discharge is 8.4. Lactic acid on admission 4.5, at discharge 1.8. BNP was 308. Vitamin B12 was 489. Folic acid was low at 4.9. TSH was 1.2. CEA was 2.86. Fasting lipid profile showed LDL of 44, HDL of 24, cholesterol 87, and triglyceride of 95. Iron profile showed iron of 37, TIBC 188, percent saturation was 20, ferritin of 300. Hepatitis profile was negative. Blood culture was negative. Wound culture showed Streptococcus. Echocardiogram showed left ventricular ejection fraction, 60% to 65% with mild mitral regurgitation and trace tricuspid regurgitation. Chest x-ray on admission was negative for infiltrate or edema. Left foot x-ray was negative for fractures or dislocation. Right foot x-ray was negative for fractures or dislocation. EKG on admission showed right bundle-branch block with premature atrial complexes. Thoracic spine CT showed age indeterminate, mild superior endplate fracture of T12. Lumbar spine CT showed numerous age indeterminate spinal fractures with significant multilevel degenerative changes. Lumbar spine MRI showed compression deformities seen at L2, L3, L4 and L5. The edema within the L2 vertebra was suggestive of acute or subacute compression injury. There was retropulsion and central canal stenosis at multiple levels. INPATIENT CYTOLOGY TECHNOLOGIST: Neurosurgery, Dr. Beaulieu. BRIEF HOSPITAL COURSE: The patient is a 73-year-old male who has not seen a physician for a long time, presented to the hospital with generalized weakness along with left lower extremity swelling and pain. He was admitted to the hospital with a diagnosis of left lower extremity cellulitis. Due to significant back pain, he underwent workup that was consistent with compression fractures. He was evaluated by Neurosurgery as well as Infectious Disease, Dr. Nelson. He was placed on IV antibiotics. He will be discharged to home on Keflex 250 mg b.i.d. for next 6 months per Infectious Disease, Dr. Nelson. Neurosurgery recommended TLSO brace. He will follow up with Neurosurgery as an outpatient. He underwent arterial Doppler that showed possible peripheral vascular disease; however, the patient declined CT angiogram of bilateral lower extremities. He was also evaluated by Palliative Care Team. FINAL DIAGNOSES: 1. Generalized weakness, multifactorial. 2. Severe sepsis due to left lower extremity cellulitis. 3. Bilateral lower extremity venous stasis. 4. Vertebral compression fractures. 5. Hypertension. 6. Physical deconditioning. 7. Lactic acidosis on admission. 8. Chronic anemia. 9. Tobacco dependence. 10. Morbid obesity with a BMI of 47. 11. Obstructive sleep apnea. 12. Folic acid deficiency. 13. Questionable peripheral vascular disease. Total time coordinating the discharge of this patient was 38 minutes. Job ID: [id number]
[2018-12-24] MEDS: Penicillin V Potassium 250 MG TAB PO SCH (19:28)
[2018-12-24] MEDS: Lidocaine Patch Removal 1 EACH TOP SCH (19:28)
[2018-12-24] MEDS ORDERED: Diltiazem 125 MG in Sodium Chloride 0.9% 100 ML IVPB SCH (20:00)
[2018-12-24 20:10] LABS: #Eosinphils 0.2 thou/uL (0.0-0.7); #Lymphocytes 1.5 thou/uL (1.20-3.40); #Monocytes 1.3 thou/uL (0.11-0.59); #Neutrophils 6.7 thou/uL (1.40-6.50); %Basophils 0.5 % (0.0-1.0); %Eosinophils 2.3 % (0.0-10.0); %Lymphocytes 15.1 % (21.0-51.0); %Monocytes 13.6 % (0.0-10.0); %Neutrophils 68.6 % (42.0-75.0); Hemoglobin 10.7 g/dL (14.0-18.0); Mean Corpuscular HGB CONC 33.2 g/dL (32.0-36.0); Mean Corpuscular Hemoglobin 32.3 pg (27.0-31.0); Mean Corpuscular Volume 97.4 fL (78.0-98.0); Mean Platelet Volume 7.3 fL (7.4-10.4); Platelet Count 319 thou/uL (130-400); RBC Distribution Width 12.3 % (11.5-14.5); White Blood Cell (WBC) Count 9.8 thou/uL (4.8-10.8)
[2018-12-24 20:32] LABS: Anion Gap 14 mmol/L (10-20); BUN (Urea Nitrogen) 10 mg/dL (8.4-25.7); Calc. Creatinine Clearance 199 mL/min (70-130); Calcium 8.9 mg/dL (7.8-10.44); Carbon Dioxide 22 mmol/L (23-31); Chloride 103 mmol/L (98-107); Estimated GFR-MDRD Greater than 90; Glucose 99 mg/dL (83-110); Magnesium 2.1 mg/dL (1.6-2.6); Potassium 3.6 mmol/L (3.5-5.1); Sodium 135 mmol/L (136-145)
[2018-12-25] MEDS: Enoxaparin Sodium 40 MG/0.4 ML SYRINGE SC SCH (08:54)
[2018-12-25] MEDS: Famotidine 20 MG TAB PO SCH ×2 (08:55→19:59)
[2018-12-25] MEDS: Folic Acid 1 MG TAB PO SCH ×2 (08:55→19:58)
[2018-12-25] MEDS: Cyclobenzaprine 10 MG TAB PO SCH ×2 (08:55→19:58)
[2018-12-25] MEDS: Multivit, Therapeutic 1 TAB PO SCH (08:57)
[2018-12-25] MEDS: Aspirin 81 mg Enteric Coated Tablet PO SCH (08:57)
[2018-12-25] MEDS: Penicillin V Potassium 250 MG TAB PO SCH ×2 (08:57→20:00)
[2018-12-25] MEDS: Saccharomyces boulardii 250 MG CAP PO SCH (08:57)
[2018-12-25] MEDS: Nystatin Powder 15 GM BOT TOP SCH ×2 (08:57→20:07)
[2018-12-25] MEDS: Calcium Carbonate + Vit D 1 TAB PO SCH ×2 (08:57→17:23)
[2018-12-25] MEDS: Lidocaine 5% Patch TD SCH (08:59)
[2018-12-25 10:24] LABS: #Eosinphils 0.2 thou/uL (0.0-0.7); #Lymphocytes 0.9 thou/uL (1.20-3.40); #Monocytes 1.1 thou/uL (0.11-0.59); #Neutrophils 5.5 thou/uL (1.40-6.50); %Basophils 0.5 % (0.0-1.0); %Lymphocytes 11.4 % (21.0-51.0); %Monocytes 14.7 % (0.0-10.0); %Neutrophils 70.3 % (42.0-75.0); Hemoglobin 10.6 g/dL (14.0-18.0); Mean Corpuscular HGB CONC 33.3 g/dL (32.0-36.0); Mean Corpuscular Hemoglobin 32.8 pg (27.0-31.0); Mean Corpuscular Volume 98.5 fL (78.0-98.0); Mean Platelet Volume 7.5 fL (7.4-10.4); Platelet Count 287 thou/uL (130-400); RBC Distribution Width 12.2 % (11.5-14.5); Red Blood Cell (RBC) Count 3.22 mill/uL (4.70-6.10); White Blood Cell (WBC) Count 7.8 thou/uL (4.8-10.8)
[2018-12-25 10:44] LABS: Anion Gap 12 mmol/L (10-20); BUN (Urea Nitrogen) 9 mg/dL (8.4-25.7); Calc. Creatinine Clearance 208 mL/min (70-130); Calcium 8.8 mg/dL (7.8-10.44); Carbon Dioxide 26 mmol/L (23-31); Chloride 104 mmol/L (98-107); Estimated GFR-MDRD Greater than 90; Glucose 90 mg/dL (83-110); Potassium 3.3 mmol/L (3.5-5.1); Sodium 139 mmol/L (136-145)
[2018-12-25] MEDS: Diltiazem HCl SR 60 mg Capsule PO SCH ×3 (12:05→23:03)
--- NOTE | 2018-12-25 12:20 | CON ---
DATE OF CONSULTATION: 12/25/2018 REASON FOR CONSULTATION: New onset atrial fibrillation. HISTORY OF PRESENT ILLNESS: Mr. Mendoza is a 73-year-old gentleman, who has not been seen around by Cardiology in the past. He recently was admitted for leg infection. He was placed on antibiotic therapy. He was getting ready for discharge to rehab when he developed atrial fibrillation with RVR. He was placed on IV Cardizem. He has minimal symptoms. He is morbidly obese and likely has obstructive sleep apnea. He denies chest pain, pressure, or other associated symptoms. He lives alone. He has no children. His most recent echo did suggest a normal LVEF. No significant valvular dysfunction. PAST MEDICAL HISTORY: Obesity, venous stasis ulceration, chronic low back pain. HOME MEDICATIONS: None. ALLERGIES: NONE. SOCIAL HISTORY: 2-pack per day smoker. FAMILY HISTORY: Negative for CAD. REVIEW OF SYSTEMS: Ten-point review of systems was reviewed as above, otherwise negative. PHYSICAL EXAMINATION: GENERAL: Patient is a pleasant gentleman, who is in no acute distress. The patient appears their stated age. He is morbidly obese. VITAL SIGNS: Blood pressure 139/64, pulse 84, temperature 97.8. NEUROLOGIC: The patient is alert and oriented x3 with no focal neurologic deficits. HEENT: Sclerae without icterus. Mouth has moist mucous membranes with normal pallor. NECK: No JVD. Carotid upstroke brisk. No bruits bilaterally. LUNGS: Clear to auscultation with unlabored respirations. BACK: No scoliosis or kyphosis. CARDIAC: Irregularly irregular. ABDOMEN: Soft, nontender, nondistended. No peritoneal signs present. No hepatosplenomegaly. No abnormal striae. EXTREMITIES: Chronic stasis dermatitis noted bilaterally with chronic venous ulceration. SKIN: No gross abnormalities. PERTINENT LABORATORY DATA: Hemoglobin 10. Creatinine 0.66. IMPRESSION: 1. New onset atrial fibrillation. 2. Chronic stasis ulceration. 3. Tobacco abuse. 4. Obesity. RECOMMENDATIONS: It appears Mr. Mendoza was doing better and was close to discharge when he developed atrial fibrillation. He is fairly asymptomatic. My concern is whether Mr. Mendoza is having paroxysmal atrial fibrillation. At this point, we would recommend anticoagulation therapy. We discussed novel oral anticoagulation therapy versus Coumadin. There are limitations to both. At this point, we would add Xarelto since that is once a day. There may be some cost issues, but the patient also was not able to be seen on a monthly basis at [facility]. He will ask his family for assistance. We will add p.o. Cardizem short-acting and try and titrate down the IV dosing. Once the IV dosing is down, his heart rate is stable, and on anticoagulation therapy, would be okay for discharge from my standpoint. Job ID: [id number]
--- NOTE | 2018-12-25 12:58 | PDOC.HOSPP ---
- Subjective Encounter Date: 12/25/18 Encounter Time: 08:00 Subjective: pt developed afib with RVR, now on cardezem drip, - Objective Vital Signs & Weight: Vital Signs (12 hours) Temp Pulse Resp BP Pulse Ox 12/25/18 11:45 98.1 F 77 20 131/65 94 L 12/25/18 08:55 95 12/25/18 07:32 97.8 F 84 17 139/64 95 12/25/18 06:55 73 20 93 L 12/25/18 04:14 98.6 F 109 H 16 130/70 92 L Weight Admit Weight 330 lb 0.05 oz Weight 330 lb 0.05 oz I&O: 12/24/18 12/25/18 12/26/18 06:59 06:59 06:59 Intake Total 480 Balance 480 Result Diagrams: 12/25/18 09:54 12/25/18 09:54 EKG Reviewed by me: Yes Hospitalist ROS - Review of Systems Eyes: denies: pain, vision change, conjunctivae inflammation, eyelid inflammation, redness, other ENT: denies: ear pain, ear discharge, nose pain, nose discharge, nose congestion , mouth pain, mouth swelling, throat pain, throat swelling, other Respiratory: denies: cough, dry, shortness of breath, hemoptysis, SOB with excertion, pleuritic pain, sputum, wheezing, other Cardiovascular: denies: chest pain, palpitations, orthopnea, paroxysmal noc. dyspnea, edema, light headedness, other Gastrointestinal: denies: nausea, vomiting, abdominal pain, diarrhea, constipation, melena, hematochezia, other Genitourinary: denies: dysuria, frequency, incontinence, hematuria, retention, other Musculoskeletal: denies: neck pain, shoulder pain, arm pain, back pain, hand pain, leg pain, foot pain, other - Medication Medications: Active Medications Generic Name Dose Route Start Last Admin Trade Name Freq PRN Reason Stop Dose Admin Albuterol/Ipratropium 3 ml 12/20/18 19:00 12/25/18 06:55 Duoneb NEB 3 ml [id number] WILL Administration Aspirin 81 mg 12/24/18 09:00 12/25/18 08:57 Ecotrin PO 81 mg DAILY WILL Administration Calcium/Vitamin D 1 tab 12/23/18 17:00 12/25/18 08:57 Caltrate 600 + Vit D PO 1 tab BID-WM WILL Administration Cyclobenzaprine HCl 5 mg 12/20/18 21:00 12/25/18 08:55 Flexeril PO 5 mg BID WILL Administration Diltiazem HCl 60 mg 12/25/18 12:00 12/25/18 12:05 Cardizem Sr PO 60 mg Q6HR WILL Administration Famotidine 20 mg 12/20/18 21:00 12/25/18 08:55 Pepcid PO 20 mg BID WILL Administration Folic Acid 1 mg 12/23/18 21:00 12/25/18 08:55 Folvite PO 1 mg BID WILL Administration Lidocaine 2 patch 12/21/18 09:00 12/25/18 08:59 Lidoderm 5% Patch TD 2 patch DAILY WILL Administration Miscellaneous Medication 1 each 12/21/18 21:00 12/24/18 19:28 Lidocaine Patch Removal TOP Not Given 2[address] [facility] Multivitamins 1 tab 12/24/18 09:00 12/25/18 08:57 Theragran PO 1 tab DAILY WILL Administration Nystatin 0 gm 12/23/18 21:00 12/25/18 08:57 Mycostatin Powder TOP 2 applic BID WILL Administration Penicillin V Potassium 250 mg 12/24/18 21:00 12/25/18 08:57 Penicillin V Potassium PO 250 mg BID WILL Administration Saccharomyces Boulardii 250 mg 12/24/18 09:00 12/25/18 08:57 Florastor PO 250 mg DAILY WILL Administration Tramadol HCl 50 mg 12/20/18 14:15 12/23/18 20:18 Ultram PO 50 mg Q6H PRN Administration Pain - Exam General Appearance: NAD, awake alert Eye: PERRL, anicteric sclera ENT: normocephalic atraumatic, no oropharyngeal lesions Neck: supple, symmetric, no JVD, no thyromegaly Heart: no murmur, no gallops, no rubs, normal peripheral pulses, irregular Respiratory: CTAB, no wheezes, no rales, no ronchi, normal chest expansion Gastrointestinal: soft, non-tender, non-distended, normal bowel sounds Gastrointestinal - other findings: morbid obesity Extremities: 1+ LE edema Extremities - other findings: chronic skin changes both leg Skin: normal turgor, no lesions Neurological: cranial nerve grossly intact, normal sensation to touch, no focal deficits Musculoskeletal: normal tone, normal strength Hosp A/P (1) Cellulitis of left lower extremity Code(s): L03.116 - CELLULITIS OF LEFT LOWER LIMB Status: Acute (2) Compression fx, lumbar spine Code(s): S32.000A - WEDGE COMPRESSION FRACTURE OF UNSP LUMBAR VERTEBRA, INIT Status: Acute (3) HTN (hypertension) Code(s): I10 - ESSENTIAL (PRIMARY) HYPERTENSION Status: Acute Qualifiers: Hypertension type: essential hypertension Qualified Code(s): I10 - Essential (primary) hypertension (4) Physical deconditioning Code(s): R53.81 - OTHER MALAISE Status: Acute (5) Morbid obesity with BMI of 45.0-49.9, adult Code(s): E66.01 - MORBID (SEVERE) OBESITY DUE TO EXCESS CALORIES; Z68.42 - BODY MASS INDEX (BMI) 45.0-49.9, ADULT Status: Chronic (6) Tobacco abuse Code(s): Z72.0 - TOBACCO USE Status: Chronic - Plan old records reviewed/req, 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
[2018-12-25] MEDS ORDERED: Diltiazem 125 MG in Sodium Chloride 0.9% 100 ML IVPB SCH (15:00)
[2018-12-25] MEDS: Rivaroxaban 10 MG TAB PO SCH (17:23)
[2018-12-25] MEDS: Lidocaine Patch Removal 1 EACH TOP SCH (20:07)
[2018-12-26] MEDS: Diltiazem HCl SR 60 mg Capsule PO SCH ×3 (05:28→17:08)
[2018-12-26] MEDS ORDERED: Potassium Chloride 20 MEQ TAB PO SCH (07:30)
--- NOTE | 2018-12-26 08:35 | PDOC.CPN ---
- Subjective Date: 12/26/18 Time: 08:34 - Review of Systems General: denies: fever/chills, weight/appetite/sleep changes, night sweats, fatigue Respiratory: denies: cough, congestion, shortness of breath, exercise intolerance Cardiovascular: denies: chest pain, palpitation, edema, paroxysmal nocturnal dyspnea, orthopnea Musculoskeletal: reports: pain Neurological: denies: numbness, syncope, seizure, weakness - Objective Allergies/Adverse Reactions: Allergies Allergy/AdvReac Type Severity Reaction Status Date / Time No Known Allergies Allergy Verified 12/20/18 13:24 Visit Medications: Current Medications Acetaminophen (Tylenol) 650 mg PO Q4H PRN PRN Reason: Headache/Fever/Mild Pain (1-3) Albuterol/Ipratropium (Duoneb) 3 ml NEB [id number] [facility] Last Admin: 12/26/18 07:03 Dose: 3 ml Aspirin (Ecotrin) 81 mg PO DAILY [facility] Last Admin: 12/25/18 08:57 Dose: 81 mg Bisacodyl (Dulcolax) 10 mg OK DAILYPRN PRN PRN Reason: Constipation Calcium/Vitamin D (Caltrate 600 + Vit D) 1 tab PO BID-WM [facility] Last Admin: 12/25/18 17:23 Dose: 1 tab Cyclobenzaprine HCl (Flexeril) 5 mg PO BID [facility] Last Admin: 12/25/18 19:58 Dose: 5 mg Diltiazem HCl (Cardizem Sr) 60 mg PO Q6HR [facility] Last Admin: 12/26/18 05:28 Dose: 60 mg Famotidine (Pepcid) 20 mg PO BID [facility] Last Admin: 12/25/18 19:59 Dose: 20 mg Folic Acid (Folvite) 1 mg PO BID [facility] Last Admin: 12/25/18 19:58 Dose: 1 mg Guaifenesin/Dextromethorphan (Robitussin Dm) 15 ml PO Q4H PRN PRN Reason: Cough Diltiazem HCl 125 mg/ Sodium (Chloride) 125 mls @ 2.5 mls/hr IVPB INF [facility]; Protocol Last Admin: 12/25/18 19:57 Dose: 125 mls Lidocaine (Lidoderm 5% Patch) 2 patch TD DAILY [facility] Last Admin: 12/25/18 08:59 Dose: 2 patch Miscellaneous Medication (Lidocaine Patch Removal) 1 each TOP 2100 [facility] Last Admin: 12/25/18 20:07 Dose: Not Given Morphine Sulfate (Morphine) 2 mg SLOW IVP Q4H PRN PRN Reason: Pain Multivitamins (Theragran) 1 tab PO DAILY [facility] Last Admin: 12/25/18 08:57 Dose: 1 tab Nicotine (Nicoderm Patch) 14 mg TD Q24HR PRN PRN Reason: Smoking craving Nystatin (Mycostatin Powder) 0 gm TOP BID [facility] Last Admin: 12/25/18 20:07 Dose: 1 applic Penicillin V Potassium (Penicillin V Potassium) 250 mg PO BID [facility] Last Admin: 12/25/18 20:00 Dose: 250 mg Potassium Chloride (K-Dur) 40 meq PO NOW [facility] Stop: 12/26/18 10:00 Rivaroxaban (Xarelto) 20 mg PO 1800 [facility] Last Admin: 12/25/18 17:23 Dose: 20 mg Saccharomyces Boulardii (Florastor) 250 mg PO DAILY [facility] Last Admin: 12/25/18 08:57 Dose: 250 mg Senna/Docusate Sodium (Senokot S) 2 tab PO BIDPRN PRN PRN Reason: Constipation Tramadol HCl (Ultram) 50 mg PO Q6H PRN PRN Reason: Pain Last Admin: 12/23/18 20:18 Dose: 50 mg Vital Signs & Weight: Vital Signs Temp Pulse Resp BP BP Pulse Ox 12/26/18 07:54 98.0 F 79 17 125/58 L 93 L 12/26/18 07:03 94 20 92 L 12/26/18 03:25 98.8 F 83 22 H 126/60 92 L 12/26/18 00:00 82 20 137/62 12/25/18 23:25 68 16 94 L Admit Weight 330 lb 0.05 oz Weight 330 lb 0.05 oz - Physical Exam General: alert & oriented x3, appears well, no apparent distress Neck: supple neck Cardiac: other (IRR IRR) Lungs: clear to auscultation Neuro: grossly intact Abdomen: unremarkable, non-tender, other (obese) Extremities: no cyanosis, 1+ LE edema - Labs Result Diagrams: 12/25/18 09:54 12/25/18 09:54 - Telemetry Supraventricular conduction: atrial fibrillation - Assessment/Plan Assessment/Plan: 1. New-onset AF 2. Morbid Obesity 3. Cellulitis Continue Xarelto and cardizem. Stop gtt. If patient remains rate-controlled, ok for discharge at any time.
[2018-12-26] MEDS: Multivit, Therapeutic 1 TAB PO SCH (08:58)
[2018-12-26] MEDS: Cyclobenzaprine 10 MG TAB PO SCH (08:58)
[2018-12-26] MEDS: Lidocaine 5% Patch TD SCH (08:58)
[2018-12-26] MEDS: Famotidine 20 MG TAB PO SCH (08:59)
[2018-12-26] MEDS: Calcium Carbonate + Vit D 1 TAB PO SCH ×2 (08:59→17:08)
[2018-12-26] MEDS: Aspirin 81 mg Enteric Coated Tablet PO SCH (08:59)
[2018-12-26] MEDS: Folic Acid 1 MG TAB PO SCH (08:59)
[2018-12-26] MEDS: Saccharomyces boulardii 250 MG CAP PO SCH (08:59)
[2018-12-26] MEDS: Penicillin V Potassium 250 MG TAB PO SCH (09:00)
[2018-12-26] MEDS: Nystatin Powder 15 GM BOT TOP SCH (09:00)
--- NOTE | 2018-12-26 10:11 | PDOC.HOSPP ---
- Subjective Encounter Date: 12/26/18 Encounter Time: 07:45 Subjective: Patient seen and examined. No new complaints. No overnight events - Objective Vital Signs & Weight: Vital Signs (12 hours) Temp Pulse Resp BP BP Pulse Ox 12/26/18 07:54 98.0 F 79 17 125/58 L 93 L 12/26/18 07:03 94 20 92 L 12/26/18 03:25 98.8 F 83 22 H 126/60 92 L 12/26/18 00:00 82 20 137/62 12/25/18 23:25 68 16 94 L Weight Admit Weight 330 lb 0.05 oz Weight 330 lb 0.05 oz I&O: 12/25/18 12/26/18 12/27/18 06:59 06:59 06:59 Intake Total 960 Balance 960 Result Diagrams: 12/25/18 09:54 12/25/18 09:54 EKG Reviewed by me: Yes Hospitalist ROS - Review of Systems Eyes: denies: pain, vision change, conjunctivae inflammation, eyelid inflammation, redness, other ENT: denies: ear pain, ear discharge, nose pain, nose discharge, nose congestion , mouth pain, mouth swelling, throat pain, throat swelling, other Respiratory: denies: cough, dry, shortness of breath, hemoptysis, SOB with excertion, pleuritic pain, sputum, wheezing, other Cardiovascular: denies: chest pain, palpitations, orthopnea, paroxysmal noc. dyspnea, edema, light headedness, other Gastrointestinal: denies: nausea, vomiting, abdominal pain, diarrhea, constipation, melena, hematochezia, other Genitourinary: denies: dysuria, frequency, incontinence, hematuria, retention, other Musculoskeletal: denies: neck pain, shoulder pain, arm pain, back pain, hand pain, leg pain, foot pain, other - Medication Medications: Active Medications Generic Name Dose Route Start Last Admin Trade Name Freq PRN Reason Stop Dose Admin Albuterol/Ipratropium 3 ml 12/20/18 19:00 12/26/18 07:03 Duoneb NEB 3 ml [id number] WILL Administration Aspirin 81 mg 12/24/18 09:00 12/26/18 08:59 Ecotrin PO 81 mg DAILY WILL Administration Calcium/Vitamin D 1 tab 12/23/18 17:00 12/26/18 08:59 Caltrate 600 + Vit D PO 1 tab BID-WM WILL Administration Cyclobenzaprine HCl 5 mg 12/20/18 21:00 12/26/18 08:58 Flexeril PO 5 mg BID WILL Administration Diltiazem HCl 60 mg 12/25/18 12:00 12/26/18 05:28 Cardizem Sr PO 60 mg Q6HR WILL Administration Famotidine 20 mg 12/20/18 21:00 12/26/18 08:59 Pepcid PO 20 mg BID WILL Administration Folic Acid 1 mg 12/23/18 21:00 12/26/18 08:59 Folvite PO 1 mg BID WILL Administration Lidocaine 2 patch 12/21/18 09:00 12/26/18 08:58 Lidoderm 5% Patch TD 2 patch DAILY WILL Administration Miscellaneous Medication 1 each 12/21/18 21:00 12/25/18 20:07 Lidocaine Patch Removal TOP Not Given [address] [facility] Multivitamins 1 tab 12/24/18 09:00 12/26/18 08:58 Theragran PO 1 tab DAILY WILL Administration Nystatin 0 gm 12/23/18 21:00 12/26/18 09:00 Mycostatin Powder TOP 1 applic BID WILL Administration Penicillin V Potassium 250 mg 12/24/18 21:00 12/26/18 09:00 Penicillin V Potassium PO 250 mg BID WILL Administration Rivaroxaban 20 mg 12/25/18 18:00 12/25/18 17:23 Xarelto PO 20 mg 1800 WILL Administration Saccharomyces Boulardii 250 mg 12/24/18 09:00 12/26/18 08:59 Florastor PO 250 mg DAILY WILL Administration Tramadol HCl 50 mg 12/20/18 14:15 12/23/18 20:18 Ultram PO 50 mg Q6H PRN Administration Pain - Exam General Appearance: NAD, awake alert Eye: PERRL, anicteric sclera ENT: normocephalic atraumatic, no oropharyngeal lesions Neck: supple, symmetric, no JVD, no thyromegaly Heart: no murmur, no gallops, no rubs, irregular Respiratory: CTAB, no wheezes, no rales, no ronchi Gastrointestinal: soft, non-tender, non-distended, normal bowel sounds Extremities: no cyanosis, no clubbing, 1+ LE edema Extremities - other findings: chronic skin changes Skin: normal turgor, no lesions Neurological: no focal deficits Musculoskeletal: normal tone, normal strength Psychiatric: normal affect, normal behavior Hosp A/P (1) Cellulitis of left lower extremity Code(s): L03.116 - CELLULITIS OF LEFT LOWER LIMB Status: Acute (2) Compression fx, lumbar spine Code(s): S32.000A - WEDGE COMPRESSION FRACTURE OF UNSP LUMBAR VERTEBRA, INIT Status: Acute (3) HTN (hypertension) Code(s): I10 - ESSENTIAL (PRIMARY) HYPERTENSION Status: Acute Qualifiers: Hypertension type: essential hypertension Qualified Code(s): I10 - Essential (primary) hypertension (4) Physical deconditioning Code(s): R53.81 - OTHER MALAISE Status: Acute (5) Morbid obesity with BMI of 45.0-49.9, adult Code(s): E66.01 - MORBID (SEVERE) OBESITY DUE TO EXCESS CALORIES; Z68.42 - BODY MASS INDEX (BMI) 45.0-49.9, ADULT Status: Chronic (6) Tobacco abuse Code(s): Z72.0 - TOBACCO USE Status: Chronic (7) Atrial fibrillation with RVR Code(s): I48.91 - UNSPECIFIED ATRIAL FIBRILLATION Status: Acute - Plan old records reviewed/req, 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
--- NOTE | 2018-12-26 13:14 | DIS ---
DATE OF ADMISSION: 12/20/2018 DATE OF DISCHARGE: 12/26/2018 ADDENDUM: Please see discharge summary dictated by Dr. Mitesh Gambino on December 24, 2018. That is the complete discharge summary for this particular patient. The patient was planned for discharge on that day, but the patient developed atrial fibrillation with rapid ventricular response and that is why his discharge was canceled and the patient stayed in hospital. The patient was treated with Cardizem drip and Cardiology was consulted. Cardiology started p.o. Cardizem as well as we turned off Cardizem drip and his rate remained controlled. The patient was meeting criteria for chronic anticoagulation and that is why Xarelto was started, though in addition to whatever Dr. Gambino prescribed, discharge medication added couple of new medication including Cardizem SR 60 mg every 6 hourly p.o. and Xarelto 20 mg daily. The patient was on Lovenox for DVT prophylaxis that was discontinued as we started Xarelto therapy. The patient is seen and examined at bedside today. The patient is medically stable for discharge today. On discharge, we replaced potassium chloride as well. Please see my progress note for more detail and discharge summary dictated by Dr. Gambino. Job ID: [id number]
[2018-12-26 16:30] VITALS: BP 117/53; TEMP 98.7
[2018-12-26] MEDS: Rivaroxaban 10 MG TAB PO SCH (17:08)
--- NOTE | 2018-12-27 10:11 | EKG ---
Test Reason : STAT Blood Pressure : / mmHG Vent. Rate : 125 BPM Atrial Rate : 087 BPM P-R Int : 000 ms QRS Dur : 130 ms QT Int : 346 ms P-R-T Axes : 000 034 -35 degrees QTc Int : 499 ms Atrial fibrillation with rapid ventricular response Right bundle branch block T wave abnormality, consider inferolateral ischemia Abnormal ECG Confirmed by SHAWN BRANDON MD ([id number] on 12/27/2018 10:10:48 AM Referred By: AARON Confirmed By:SHAWN BRANDON MD
== END 2018-12-26 17:50 | DRG 872 ==
LOC: ERS 09:17 → T4-A 12:32 → 2NO 12-24 20:44
PROVIDERS: ADMIT Internal Medicine; ATTEND Internal Medicine
DX: A41.9 Sepsis, unspecified organism (principal); L03.116 Cellulitis of left lower limb; M48.56XA Collapsed vertebra, not elsewhere classified, lumbar region, initial encounter for fracture; M48.54XA Collapsed vertebra, not elsewhere classified, thoracic region, initial encounter for fracture; Z68.42 Body mass index [BMI] 45.0-49.9, adult; E87.2 Acidosis; E66.01 Morbid (severe) obesity due to excess calories; R65.20 Severe sepsis without septic shock; I87.8 Other specified disorders of veins; E53.8 Deficiency of other specified B group vitamins; G47.33 Obstructive sleep apnea (adult) (pediatric); D64.9 Anemia, unspecified; F17.210 Nicotine dependence, cigarettes, uncomplicated; L97.529 Non-pressure chronic ulcer of other part of left foot with unspecified severity; R53.81 Other malaise; J44.9 Chronic obstructive pulmonary disease, unspecified; I73.9 Peripheral vascular disease, unspecified; I89.0 Lymphedema, not elsewhere classified; I10 Essential (primary) hypertension; I87.2 Venous insufficiency (chronic) (peripheral); M54.5 Low back pain; I48.91 Unspecified atrial fibrillation
CPT/HCPCS: 36415; 71045; 72128; 72131; 72148; 80048; 80053; 80061; 80074; 82306; 82378; 82607; 82728; 82746; 83036; 83540; 83550; 83605; 83735; 83880; 84443; 85025; 87040; 87070; 87077; 87186; 87205; 90471; 90662; 90670; 93005; 93010; 93306; 93923; 94640; 96365; 96375; G0008; G0009; J0696; J1650; J2543; J3370; J3490; J7050; J7620; L0639

== ENCOUNTER 2020-06-28 19:46 | Inpatient (IN) | payer MEDICARE ==
[2020-06-28 20:50] LABS: Hemoglobin 6.3 g/dL (14.0-18.0); Mean Corpuscular HGB CONC 28.3 g/dL (32.0-36.0); Mean Corpuscular Volume 74.1 fL (78.0-98.0); Mean Platelet Volume 7.1 fL (7.4-10.4); Platelet Count 464 thou/uL (130-400); RBC Distribution Width 16.7 % (11.5-14.5); Red Blood Cell (RBC) Count 2.99 mill/uL (4.70-6.10)
[2020-06-28 20:55] LABS: INR-International Normal Ratio 2.8
[2020-06-28 20:56] LABS: PTT 46.3 sec (22.9-36.1)
[2020-06-28 21:13] LABS: ALT (SGPT) 8 U/L (8-55); AST (SGOT) 15 U/L (5-34); Albumin 3.6 g/dL (3.4-4.8); Alkaline Phosphatase 61 U/L (40-110); Anion Gap 13 mmol/L (10-20); BUN (Urea Nitrogen) 22 mg/dL (8.4-25.7); Bilirubin, Total 0.4 mg/dL (0.2-1.2); Calc. Creatinine Clearance 0 mL/min (70-130); Calcium 9.1 mg/dL (7.8-10.44); Carbon Dioxide 27 mmol/L (23-31); Chloride 103 mmol/L (98-107); Globulin 3.9 g/dL (2.4-3.5); Glucose 121 mg/dL (83-110); Potassium 4.9 mmol/L (3.5-5.1); Protein, Total 7.5 g/dL (5.8-8.1); Sodium 138 mmol/L (136-145)
[2020-06-28 21:22] LABS: #Basophils 0.1 thou/uL (0.0-0.2); #Eosinphils 0.2 thou/uL (0.0-0.7); #Monocytes 0.9 thou/uL (0.11-0.59); #Neutrophils 3.9 thou/uL (1.40-6.50); %Basophils 0.8 % (0.0-1.0); %Eosinophils 2.8 % (0.0-10.0); %Lymphocytes 16.5 % (21.0-51.0); %Monocytes 14.2 % (0.0-10.0); %Neutrophils 65.6 % (42.0-75.0); Anisocytosis SLIGHT = 6-15 cells (100X) (0-5/hpf); Hypochromia SLIGHT = 6-15 cells (100X) (0-5/hpf); MDiff Complete? YES; Microcytosis SLIGHT = 6-15 cells (100X) (0-5/hpf); Polychromasia SLIGHT = 2-3 cells (100X) (0-2/hpf); Tear Drops SLIGHT = 2-5 cells (100X) (0-1/hpf)
[2020-06-28] MEDS ORDERED: Furosemide 40 MG/4 ML VIAL SLOW IVP SCH (22:45)
[2020-06-28 23:00] LABS: Iron 24 ug/dL (65-175); Iron Binding Capacity, Total 468 mcg/dL (261-462)
[2020-06-29 01:10] LABS: SARS-CoV-2 NAA Rapid Test Not Detected (NotDetected)
[2020-06-29 03:55] VITALS: BMI 56.6
[2020-06-29] MEDS: Diltiazem HCl SR 60 mg Capsule PO SCH ×3 (05:08→13:08)
[2020-06-29] MEDS: Acetaminophen 325 MG TAB PO PRN (05:13)
[2020-06-29 07:42] LABS: #Eosinphils 0.2 thou/uL (0.0-0.7); #Lymphocytes 0.8 thou/uL (1.20-3.40); #Monocytes 0.9 thou/uL (0.11-0.59); #Neutrophils 6.3 thou/uL (1.40-6.50); %Basophils 0.3 % (0.0-1.0); %Eosinophils 2.8 % (0.0-10.0); %Lymphocytes 9.9 % (21.0-51.0); %Monocytes 11.1 % (0.0-10.0); Hemoglobin 7.3 g/dL (14.0-18.0); Mean Corpuscular HGB CONC 28.5 g/dL (32.0-36.0); Mean Corpuscular Hemoglobin 21.9 pg (27.0-31.0); Mean Corpuscular Volume 76.8 fL (78.0-98.0); Mean Platelet Volume 7.1 fL (7.4-10.4); Platelet Count 420 thou/uL (130-400); Red Blood Cell (RBC) Count 3.34 mill/uL (4.70-6.10); White Blood Cell (WBC) Count 8.3 thou/uL (4.8-10.8)
[2020-06-29 07:59] LABS: Hypochromia SLIGHT = 6-15 cells (100X) (0-5/hpf); MDiff Complete? YES; Microcytosis SLIGHT = 6-15 cells (100X) (0-5/hpf); Ovalocytes SLIGHT = 2-5 cells (100X) (0-1/hpf); Platelet Morphology Comment Appears Increased; Polychromasia SLIGHT = 2-3 cells (100X) (0-2/hpf)
[2020-06-29 08:03] LABS: ALT (SGPT) 9 U/L (8-55); AST (SGOT) 32 U/L (5-34); Albumin 3.2 g/dL (3.4-4.8); Alkaline Phosphatase 55 U/L (40-110); Anion Gap 14 mmol/L (10-20); BUN (Urea Nitrogen) 19 mg/dL (8.4-25.7); Bilirubin, Total 1.7 mg/dL (0.2-1.2); Calc. Creatinine Clearance 165 mL/min (70-130); Carbon Dioxide 23 mmol/L (23-31); Chloride 103 mmol/L (98-107); Globulin 4.2 g/dL (2.4-3.5); Glucose 90 mg/dL (83-110); Potassium 4.7 mmol/L (3.5-5.1); Protein, Total 7.4 g/dL (5.8-8.1); Sodium 135 mmol/L (136-145)
[2020-06-29] MEDS: Folic Acid 1 MG TAB PO SCH ×2 (08:53→21:23)
[2020-06-29] MEDS ORDERED: Famotidine 20 MG TAB PO SCH (09:00)
[2020-06-29] MEDS ORDERED: Aspirin 81 mg Enteric Coated Tablet PO SCH (09:00)
[2020-06-29] MEDS ORDERED: Non-Formulary Item 1 EACH (Diltiazem Hcl [Cardizem] 60 MG Tab) PO SCH (15:00)
[2020-06-29] MEDS: Calcium Carbonate 600 MG + Vit D TAB PO SCH (18:12)
[2020-06-29] MEDS: Acetaminophen ER (8hr) 650 MG TAB PO SCH (18:12)
[2020-06-29] MEDS: Pantoprazole 40 MG VIAL IVP SCH (21:23)
[2020-06-30] MEDS: Furosemide 20 MG TAB PO SCH (08:31)
[2020-06-30] MEDS: Calcium Carbonate 600 MG + Vit D TAB PO SCH ×2 (08:31→15:48)
[2020-06-30] MEDS: Multivit, Therapeutic 1 TAB PO SCH (08:31)
[2020-06-30] MEDS: Acetaminophen ER (8hr) 650 MG TAB PO SCH ×2 (08:31→17:08)
[2020-06-30] MEDS: Pantoprazole 40 MG VIAL IVP SCH ×2 (08:32→20:28)
[2020-06-30] MEDS: Saccharomyces boulardii 250 MG CAP PO SCH (08:32)
[2020-06-30] MEDS: Folic Acid 1 MG TAB PO SCH ×2 (08:34→20:28)
[2020-06-30] MEDS ORDERED: Non-Formulary Item 1 EACH (Fluticasone/Vilanterol [Breo Ellipta] 100 MCG/25 MCG Blst.W.De INH SCH (09:00)
[2020-06-30 09:53] LABS: Hemoglobin 7.2 g/dL (14.0-18.0); Platelet Count 389 thou/uL (130-400)
[2020-06-30] MEDS ORDERED: GoLYTELY 4,000 ml Bottle PO SCH (17:00)
[2020-07-01 07:26] LABS: #Eosinphils 0.3 thou/uL (0.0-0.7); #Lymphocytes 0.9 thou/uL (1.20-3.40); #Neutrophils 6.2 thou/uL (1.40-6.50); %Basophils 0.4 % (0.0-1.0); %Eosinophils 3.2 % (0.0-10.0); %Lymphocytes 10.3 % (21.0-51.0); %Monocytes 12.3 % (0.0-10.0); %Neutrophils 73.8 % (42.0-75.0); Hemoglobin 8.6 g/dL (14.0-18.0); Mean Corpuscular HGB CONC 29.3 g/dL (32.0-36.0); Mean Corpuscular Hemoglobin 22.7 pg (27.0-31.0); Mean Corpuscular Volume 77.7 fL (78.0-98.0); Mean Platelet Volume 7.1 fL (7.4-10.4); Platelet Count 442 thou/uL (130-400); RBC Distribution Width 19.9 % (11.5-14.5); Red Blood Cell (RBC) Count 3.76 mill/uL (4.70-6.10); White Blood Cell (WBC) Count 8.3 thou/uL (4.8-10.8)
[2020-07-01 07:57] LABS: Anisocytosis SLIGHT = 6-15 cells (100X) (0-5/hpf); Hypochromia SLIGHT = 6-15 cells (100X) (0-5/hpf); MDiff Complete? YES; Microcytosis SLIGHT = 6-15 cells (100X) (0-5/hpf); Platelet Morphology Comment Appears Increased; Polychromasia MODERATE = 3-4 cells (100X) (0-2/hpf)
[2020-07-01] MEDS ORDERED: Ketamine 50 MG/ML (10ML VIAL) ONE (09:10)
[2020-07-01] MEDS ORDERED: PROPOFOL 200 MG/20 ML VIAL ONE (09:23)
[2020-07-01] MEDS: Mometasone 100 MCG/Formoterol 5 MCG 120 PUFF INHALER INH SCH (11:31)
[2020-07-01] MEDS: Acetaminophen ER (8hr) 650 MG TAB PO SCH ×2 (11:55→17:11)
[2020-07-01] MEDS: Furosemide 20 MG TAB PO SCH (11:55)
[2020-07-01] MEDS: Calcium Carbonate 600 MG + Vit D TAB PO SCH ×2 (11:56→17:11)
[2020-07-01] MEDS: Folic Acid 1 MG TAB PO SCH ×2 (11:56→20:07)
[2020-07-01] MEDS: Saccharomyces boulardii 250 MG CAP PO SCH (11:57)
[2020-07-01] MEDS: Multivit, Therapeutic 1 TAB PO SCH (11:57)
[2020-07-01] MEDS: Pantoprazole 40 MG VIAL IVP SCH ×2 (11:57→20:07)
[2020-07-01] MEDS: HYDROcodone/Acetaminophen 5/325 mg Tablet PO PRN (13:26)
[2020-07-02 06:27] LABS: #Eosinphils 0.1 thou/uL (0.0-0.7); #Lymphocytes 0.9 thou/uL (1.20-3.40); #Monocytes 1.1 thou/uL (0.11-0.59); #Neutrophils 9.4 thou/uL (1.40-6.50); %Basophils 0.2 % (0.0-1.0); %Eosinophils 1.2 % (0.0-10.0); %Lymphocytes 7.5 % (21.0-51.0); %Monocytes 9.3 % (0.0-10.0); %Neutrophils 81.8 % (42.0-75.0); Hemoglobin 8.3 g/dL (14.0-18.0); Mean Corpuscular HGB CONC 29.9 g/dL (32.0-36.0); Mean Corpuscular Hemoglobin 23.7 pg (27.0-31.0); Mean Corpuscular Volume 79.3 fL (78.0-98.0); Mean Platelet Volume 7.2 fL (7.4-10.4); Platelet Count 395 thou/uL (130-400); RBC Distribution Width 20.7 % (11.5-14.5); Red Blood Cell (RBC) Count 3.48 mill/uL (4.70-6.10); White Blood Cell (WBC) Count 11.5 thou/uL (4.8-10.8)
[2020-07-02] MEDS: Mometasone 100 MCG/Formoterol 5 MCG 120 PUFF INHALER INH SCH (08:27)
[2020-07-02] MEDS: Acetaminophen ER (8hr) 650 MG TAB PO SCH ×2 (09:37→16:28)
[2020-07-02] MEDS: Saccharomyces boulardii 250 MG CAP PO SCH (09:39)
[2020-07-02] MEDS: Calcium Carbonate 600 MG + Vit D TAB PO SCH ×2 (09:39→16:28)
[2020-07-02] MEDS: Folic Acid 1 MG TAB PO SCH ×2 (09:39→20:42)
[2020-07-02] MEDS: Multivit, Therapeutic 1 TAB PO SCH (09:39)
[2020-07-02] MEDS: Pantoprazole 40 MG VIAL IVP SCH ×2 (09:40→20:42)
[2020-07-02] MEDS: Furosemide 20 MG TAB PO SCH (09:40)
[2020-07-02] MEDS: Ferrous Sulfate 325 MG TAB PO SCH (16:28)
[2020-07-02 18:11] LABS: Bacteria/HPF None Seen HPF (None Seen); Bilirubin Negative (Negative); Blood, Urine Negative (Negative); Clarity Clear (Clear); Glucose, Urine (Dipstick) Normal (Negative); Ketone, Urine Negative (Negative); Leukocyte Negative Leu/uL (Negative); Nitrite Negative (Negative); Protein, Urine (Dipstick) Negative (Neg-Trace); RBC/HPF 0-3 HPF (0-3); Specific Gravity, Urine 1.019 (1.002-1.036); Squamous Epithelial 0-3 HPF (0-3); Urobilinogen Normal mg/dL (Less than 2); WBC/HPF 0-3 HPF (0-3); pH, Urine 5.5 (5.0-9.0)
[2020-07-03 04:53] LABS: Hemoglobin 8.3 g/dL (14.0-18.0); Platelet Count 370 thou/uL (130-400)
[2020-07-03] MEDS: Mometasone 100 MCG/Formoterol 5 MCG 120 PUFF INHALER INH SCH (08:20)
[2020-07-03] MEDS: Calcium Carbonate 600 MG + Vit D TAB PO SCH ×2 (08:45→16:35)
[2020-07-03] MEDS: Saccharomyces boulardii 250 MG CAP PO SCH (08:45)
[2020-07-03] MEDS: Ferrous Sulfate 325 MG TAB PO SCH ×2 (08:45→16:35)
[2020-07-03] MEDS: Folic Acid 1 MG TAB PO SCH ×2 (08:45→20:10)
[2020-07-03] MEDS: Acetaminophen ER (8hr) 650 MG TAB PO SCH ×2 (08:47→16:34)
[2020-07-03] MEDS: Pantoprazole 40 MG VIAL IVP SCH ×2 (08:47→20:10)
[2020-07-03] MEDS: Multivit, Therapeutic 1 TAB PO SCH (08:47)
[2020-07-03] MEDS: Furosemide 20 MG TAB PO SCH (08:47)
[2020-07-03] MEDS ORDERED: Acetaminophen/Codeine 30-300mg Tablet PO PRN (13:35)
[2020-07-03] MEDS ORDERED: traMADol HCl 50 MG TAB PO PRN (13:36)
[2020-07-03] MEDS: Rivaroxaban 10 MG TAB PO SCH (18:22)
[2020-07-04] MEDS: HYDROcodone/Acetaminophen 5/325 mg Tablet PO PRN (01:03)
[2020-07-04] MEDS: Mometasone 100 MCG/Formoterol 5 MCG 120 PUFF INHALER INH SCH (07:47)
[2020-07-04] MEDS: Acetaminophen ER (8hr) 650 MG TAB PO SCH ×2 (08:33→16:15)
[2020-07-04] MEDS: Furosemide 20 MG TAB PO SCH (08:34)
[2020-07-04] MEDS: Folic Acid 1 MG TAB PO SCH ×2 (08:34→20:59)
[2020-07-04] MEDS: Calcium Carbonate 600 MG + Vit D TAB PO SCH ×2 (08:34→16:14)
[2020-07-04] MEDS: Saccharomyces boulardii 250 MG CAP PO SCH (08:34)
[2020-07-04] MEDS: Ferrous Sulfate 325 MG TAB PO SCH ×2 (08:34→16:14)
[2020-07-04] MEDS: Aspirin 81 mg Enteric Coated Tablet PO SCH (08:34)
[2020-07-04] MEDS: Multivit, Therapeutic 1 TAB PO SCH (08:34)
[2020-07-04] MEDS: Pantoprazole 40 MG VIAL IVP SCH ×2 (08:35→20:57)
[2020-07-04 14:36] LABS: #Eosinphils 0.2 thou/uL (0.0-0.7); #Lymphocytes 0.6 thou/uL (1.20-3.40); #Monocytes 1.6 thou/uL (0.11-0.59); #Neutrophils 8.5 thou/uL (1.40-6.50); %Basophils 0.3 % (0.0-1.0); %Eosinophils 1.5 % (0.0-10.0); %Lymphocytes 5.9 % (21.0-51.0); %Monocytes 14.5 % (0.0-10.0); %Neutrophils 77.9 % (42.0-75.0); Hemoglobin 9.1 g/dL (14.0-18.0); Mean Corpuscular HGB CONC 31.7 g/dL (32.0-36.0); Mean Corpuscular Hemoglobin 25.6 pg (27.0-31.0); Mean Corpuscular Volume 80.8 fL (78.0-98.0); Mean Platelet Volume 7.1 fL (7.4-10.4); Platelet Count 371 thou/uL (130-400); RBC Distribution Width 21.4 % (11.5-14.5); Red Blood Cell (RBC) Count 3.57 mill/uL (4.70-6.10); White Blood Cell (WBC) Count 10.9 thou/uL (4.8-10.8)
[2020-07-04 14:47] LABS: Anion Gap 13 mmol/L (10-20); BUN (Urea Nitrogen) 15 mg/dL (8.4-25.7); Calc. Creatinine Clearance 150 mL/min (70-130); Carbon Dioxide 23 mmol/L (23-31); Chloride 102 mmol/L (98-107); Glucose 114 mg/dL (83-110); Sodium 134 mmol/L (136-145)
[2020-07-04] MEDS: Rivaroxaban 10 MG TAB PO SCH (18:23)
[2020-07-04] MEDS ORDERED: Bisacodyl 5 MG TAB PO SCH (20:30)
[2020-07-05] MEDS: Acetaminophen 325 MG TAB PO PRN (04:54)
[2020-07-05 06:13] LABS: Eosinophils 6 % (0-10); Hemoglobin 8.2 g/dL (14.0-18.0); Hypochromia SLIGHT = 6-15 cells (100X) (0-5/hpf); Lymphocytes 10 % (21-51); MDiff Complete? YES; Mean Corpuscular HGB CONC 28.7 g/dL (32.0-36.0); Mean Corpuscular Hemoglobin 23.2 pg (27.0-31.0); Mean Corpuscular Volume 80.7 fL (78.0-98.0); Mean Platelet Volume 7.1 fL (7.4-10.4); Monocytes 13 % (0-10); Neutrophil 71 % (42-75); Platelet Count 367 thou/uL (130-400); Platelet Morphology Comment Appears Adequate; RBC Distribution Width 21.4 % (11.5-14.5); Red Blood Cell (RBC) Count 3.51 mill/uL (4.70-6.10); White Blood Cell (WBC) Count 8.1 thou/uL (4.8-10.8)
[2020-07-05 06:14] LABS: Anion Gap 10 mmol/L (10-20); BUN (Urea Nitrogen) 16 mg/dL (8.4-25.7); Calc. Creatinine Clearance 173 mL/min (70-130); Calcium 8.9 mg/dL (7.8-10.44); Carbon Dioxide 27 mmol/L (23-31); Chloride 102 mmol/L (98-107); Glucose 95 mg/dL (83-110); Potassium 3.8 mmol/L (3.5-5.1); Sodium 135 mmol/L (136-145)
[2020-07-05] MEDS: Mometasone 100 MCG/Formoterol 5 MCG 120 PUFF INHALER INH SCH (07:40)
[2020-07-05] MEDS: Furosemide 20 MG TAB PO SCH (08:35)
[2020-07-05] MEDS: Calcium Carbonate 600 MG + Vit D TAB PO SCH ×2 (08:35→17:31)
[2020-07-05] MEDS: Aspirin 81 mg Enteric Coated Tablet PO SCH (08:35)
[2020-07-05] MEDS: Folic Acid 1 MG TAB PO SCH (08:35)
[2020-07-05] MEDS: Multivit, Therapeutic 1 TAB PO SCH (08:35)
[2020-07-05] MEDS: Ferrous Sulfate 325 MG TAB PO SCH ×2 (08:35→17:31)
[2020-07-05] MEDS: Saccharomyces boulardii 250 MG CAP PO SCH (08:35)
[2020-07-05] MEDS: Pantoprazole 40 MG VIAL IVP SCH (08:36)
[2020-07-05 08:37] VITALS: BP 144/63; TEMP 97.8
[2020-07-05] MEDS: Acetaminophen ER (8hr) 650 MG TAB PO SCH ×2 (09:45→17:32)
[2020-07-05] MEDS: Rivaroxaban 10 MG TAB PO SCH (17:31)
== END 2020-07-05 17:50 | DRG 812 ==
LOC: ERS 19:46 → ERHOLD 22:06 → INTOOBSV 22:06 → ONC 06-29 02:28 → OBSVTOIN 06-29 09:18
PROVIDERS: ADMIT Internal Medicine; ATTEND Internal Medicine
PROC: 0DB98ZX Excision of Duodenum, Via Natural or Artificial Opening Endoscopic, Diagnostic (ICD-10-PCS; principal; 2020-07-01)
PROC: 0DBK8ZZ Excision of Ascending Colon, Via Natural or Artificial Opening Endoscopic (ICD-10-PCS; 2020-07-01)
PROC: 0DBL8ZX Excision of Transverse Colon, Via Natural or Artificial Opening Endoscopic, Diagnostic (ICD-10-PCS; 2020-07-01)
PROC: 0DBN8ZZ Excision of Sigmoid Colon, Via Natural or Artificial Opening Endoscopic (ICD-10-PCS; 2020-07-01)
PROC: 0DBP8ZZ Excision of Rectum, Via Natural or Artificial Opening Endoscopic (ICD-10-PCS; 2020-07-01)
PROC: 0DBM8ZZ Excision of Descending Colon, Via Natural or Artificial Opening Endoscopic (ICD-10-PCS; 2020-07-01)
PROC: 0DBH8ZZ Excision of Cecum, Via Natural or Artificial Opening Endoscopic (ICD-10-PCS; 2020-07-01)
DX: D50.9 Iron deficiency anemia, unspecified (principal); I48.20 Chronic atrial fibrillation, unspecified; Z68.43 Body mass index [BMI] 50.0-59.9, adult; I50.32 Chronic diastolic (congestive) heart failure; E87.1 Hypo-osmolality and hyponatremia; E66.01 Morbid (severe) obesity due to excess calories; R53.81 Other malaise; K63.5 Polyp of colon; K64.8 Other hemorrhoids; K57.30 Diverticulosis of large intestine without perforation or abscess without bleeding; E88.09 Other disorders of plasma-protein metabolism, not elsewhere classified; I11.0 Hypertensive heart disease with heart failure; Z79.82 Long term (current) use of aspirin; Z79.2 Long term (current) use of antibiotics; Z79.01 Long term (current) use of anticoagulants; Z87.891 Personal history of nicotine dependence; Z80.0 Family history of malignant neoplasm of digestive organs
CPT/HCPCS: 0240U; 36415; 36430; 71045; 80048; 80053; 81001; 82274; 82607; 82728; 82746; 83540; 83550; 83880; 84484; 85014; 85018; 85025; 85049; 85610; 85730; 86850; 86900; 86901; 88305; 93005; C9113; G0378; J2704; P9016

== ENCOUNTER 2020-07-10 10:26 | Inpatient (IN) | payer MEDICARE ==
[2020-07-10 11:13] LABS: #Eosinphils 0.2 thou/uL (0.0-0.7); #Monocytes 1.1 thou/uL (0.11-0.59); #Neutrophils 5.3 thou/uL (1.40-6.50); %Basophils 0.5 % (0.0-1.0); %Eosinophils 2.8 % (0.0-10.0); %Lymphocytes 13.6 % (21.0-51.0); Hemoglobin 6.5 g/dL (14.0-18.0); Mean Corpuscular HGB CONC 29.7 g/dL (32.0-36.0); Mean Corpuscular Hemoglobin 23.6 pg (27.0-31.0); Mean Corpuscular Volume 79.5 fL (78.0-98.0); Mean Platelet Volume 7.1 fL (7.4-10.4); Platelet Count 499 thou/uL (130-400); RBC Distribution Width 20.2 % (11.5-14.5); Red Blood Cell (RBC) Count 2.73 mill/uL (4.70-6.10); White Blood Cell (WBC) Count 7.6 thou/uL (4.8-10.8)
[2020-07-10 11:22] LABS: INR-International Normal Ratio 2.1
[2020-07-10 11:23] LABS: PTT 37.4 sec (22.9-36.1)
[2020-07-10 11:37] LABS: ALT (SGPT) 16 U/L (8-55); AST (SGOT) 21 U/L (5-34); Albumin 3.3 g/dL (3.4-4.8); Alkaline Phosphatase 59 U/L (40-110); Anion Gap 12 mmol/L (10-20); BUN (Urea Nitrogen) 25 mg/dL (8.4-25.7); Bilirubin, Total 0.4 mg/dL (0.2-1.2); Calc. Creatinine Clearance 0 mL/min (70-130); Calcium 10.1 mg/dL (7.8-10.44); Carbon Dioxide 27 mmol/L (23-31); Chloride 100 mmol/L (98-107); Globulin 3.6 g/dL (2.4-3.5); Glucose 107 mg/dL (83-110); Potassium 4.7 mmol/L (3.5-5.1); Protein, Total 6.9 g/dL (5.8-8.1); Sodium 134 mmol/L (136-145)
[2020-07-10 17:15] VITALS: BMI 46.5
[2020-07-10 18:21] LABS: Hemoglobin 7.4 g/dL (14.0-18.0)
[2020-07-10] MEDS: Sodium Chloride 0.9% 1,000 ML IV SCH (22:25)
[2020-07-11 00:44] LABS: Hemoglobin 6.8 g/dL (14.0-18.0)
[2020-07-11 06:24] LABS: #Basophils 0.1 thou/uL (0.0-0.2); #Eosinphils 0.3 thou/uL (0.0-0.7); #Lymphocytes 1.2 thou/uL (1.20-3.40); #Neutrophils 4.9 thou/uL (1.40-6.50); %Basophils 0.7 % (0.0-1.0); %Lymphocytes 15.7 % (21.0-51.0); %Monocytes 13.4 % (0.0-10.0); %Neutrophils 66.2 % (42.0-75.0); Hemoglobin 8.2 g/dL (14.0-18.0); Mean Corpuscular HGB CONC 30.5 g/dL (32.0-36.0); Mean Corpuscular Volume 81.9 fL (78.0-98.0); Mean Platelet Volume 7.2 fL (7.4-10.4); Platelet Count 434 thou/uL (130-400); RBC Distribution Width 19.4 % (11.5-14.5); Red Blood Cell (RBC) Count 3.28 mill/uL (4.70-6.10); White Blood Cell (WBC) Count 7.4 thou/uL (4.8-10.8)
[2020-07-11 06:32] LABS: Anion Gap 12 mmol/L (10-20); BUN (Urea Nitrogen) 20 mg/dL (8.4-25.7); Calc. Creatinine Clearance 135 mL/min (70-130); Calcium 9.2 mg/dL (7.8-10.44); Carbon Dioxide 26 mmol/L (23-31); Chloride 102 mmol/L (98-107); Glucose 96 mg/dL (83-110); Potassium 4.2 mmol/L (3.5-5.1); Sodium 136 mmol/L (136-145)
[2020-07-11] MEDS ORDERED: Pantoprazole 40 MG VIAL IVP SCH (09:00)
[2020-07-11 10:00] LABS: Hemoglobin 7.8 g/dL (14.0-18.0)
[2020-07-11] MEDS ORDERED: Iron, Sodium Ferric Gluconate 250 MG in Sodium Chloride 0.9% 250 ML 250 ML IVPB SCH (12:15)
[2020-07-11] MEDS: Sodium Chloride 0.9% 1,000 ML IV SCH (16:46)
[2020-07-11] MEDS: Mometasone 100 MCG/Formoterol 5 MCG 120 PUFF INHALER INH SCH (18:11)
[2020-07-11] MEDS ORDERED: Ondansetron PF 4 MG/2 ML Vial IVP PRN (18:31)
[2020-07-11] MEDS: Acetaminophen 325 MG TAB PO PRN (18:35)
[2020-07-12] MEDS: Acetaminophen 325 MG TAB PO PRN ×3 (02:33→21:45)
[2020-07-12 07:16] LABS: #Basophils 0.1 thou/uL (0.0-0.2); #Eosinphils 0.3 thou/uL (0.0-0.7); #Lymphocytes 1.1 thou/uL (1.20-3.40); #Neutrophils 5.1 thou/uL (1.40-6.50); %Basophils 0.8 % (0.0-1.0); %Eosinophils 4.2 % (0.0-10.0); %Lymphocytes 14.2 % (21.0-51.0); %Monocytes 12.7 % (0.0-10.0); Hemoglobin 7.5 g/dL (14.0-18.0); Mean Corpuscular HGB CONC 30.8 g/dL (32.0-36.0); Mean Corpuscular Hemoglobin 25.5 pg (27.0-31.0); Mean Corpuscular Volume 82.9 fL (78.0-98.0); Platelet Count 431 thou/uL (130-400); RBC Distribution Width 19.8 % (11.5-14.5); Red Blood Cell (RBC) Count 2.92 mill/uL (4.70-6.10); White Blood Cell (WBC) Count 7.5 thou/uL (4.8-10.8)
[2020-07-12] MEDS: Mometasone 100 MCG/Formoterol 5 MCG 120 PUFF INHALER INH SCH ×3 (07:25→18:42)
[2020-07-12 07:32] LABS: Anion Gap 10 mmol/L (10-20); BUN (Urea Nitrogen) 17 mg/dL (8.4-25.7); Calc. Creatinine Clearance 140 mL/min (70-130); Calcium 8.9 mg/dL (7.8-10.44); Carbon Dioxide 27 mmol/L (23-31); Chloride 103 mmol/L (98-107); Glucose 86 mg/dL (83-110); Sodium 136 mmol/L (136-145)
[2020-07-12 08:36] LABS: Hypochromia SLIGHT = 6-15 cells (100X) (0-5/hpf); MDiff Complete? YES; Ovalocytes SLIGHT = 2-5 cells (100X) (0-1/hpf); Platelet Morphology Comment Appears Increased; Polychromasia SLIGHT = 2-3 cells (100X) (0-2/hpf)
[2020-07-12] MEDS: Sodium Chloride 0.9% 1,000 ML IV SCH (14:23)
[2020-07-13 06:57] LABS: #Eosinphils 0.3 thou/uL (0.0-0.7); #Monocytes 0.9 thou/uL (0.11-0.59); #Neutrophils 5.9 thou/uL (1.40-6.50); %Basophils 0.5 % (0.0-1.0); %Lymphocytes 12.4 % (21.0-51.0); %Monocytes 10.6 % (0.0-10.0); %Neutrophils 72.5 % (42.0-75.0); Hemoglobin 7.3 g/dL (14.0-18.0); Mean Corpuscular HGB CONC 30.2 g/dL (32.0-36.0); Mean Corpuscular Hemoglobin 25.2 pg (27.0-31.0); Mean Corpuscular Volume 83.6 fL (78.0-98.0); Mean Platelet Volume 6.9 fL (7.4-10.4); Platelet Count 462 thou/uL (130-400); RBC Distribution Width 20.1 % (11.5-14.5); Red Blood Cell (RBC) Count 2.89 mill/uL (4.70-6.10); White Blood Cell (WBC) Count 8.2 thou/uL (4.8-10.8)
[2020-07-13] MEDS: Mometasone 100 MCG/Formoterol 5 MCG 120 PUFF INHALER INH SCH ×2 (06:59→18:49)
[2020-07-13 07:16] LABS: Anion Gap 11 mmol/L (10-20); BUN (Urea Nitrogen) 16 mg/dL (8.4-25.7); Calc. Creatinine Clearance 136 mL/min (70-130); Calcium 8.5 mg/dL (7.8-10.44); Carbon Dioxide 25 mmol/L (23-31); Chloride 105 mmol/L (98-107); Glucose 95 mg/dL (83-110); Potassium 4.2 mmol/L (3.5-5.1); Sodium 137 mmol/L (136-145)
[2020-07-13] MEDS: Acetaminophen 325 MG TAB PO PRN ×2 (08:14→17:21)
[2020-07-13] MEDS: Calcium Carbonate 600 MG + Vit D TAB PO SCH (17:19)
[2020-07-14] MEDS: Acetaminophen 325 MG TAB PO PRN ×3 (06:34→21:41)
[2020-07-14 06:38] LABS: Hemoglobin 7.4 g/dL (14.0-18.0); Mean Corpuscular HGB CONC 30.1 g/dL (32.0-36.0); Mean Corpuscular Hemoglobin 25.3 pg (27.0-31.0); Mean Corpuscular Volume 84.1 fL (78.0-98.0); Mean Platelet Volume 6.8 fL (7.4-10.4); Platelet Count 472 thou/uL (130-400); RBC Distribution Width 20.7 % (11.5-14.5); Red Blood Cell (RBC) Count 2.91 mill/uL (4.70-6.10); White Blood Cell (WBC) Count 8.2 thou/uL (4.8-10.8)
[2020-07-14] MEDS: Mometasone 100 MCG/Formoterol 5 MCG 120 PUFF INHALER INH SCH ×2 (06:42→20:40)
[2020-07-14 06:57] LABS: #Basophils 0.1 thou/uL (0.0-0.2); #Eosinphils 0.2 thou/uL (0.0-0.7); %Basophils 0.6 % (0.0-1.0); %Eosinophils 2.6 % (0.0-10.0); %Lymphocytes 11.6 % (21.0-51.0); %Monocytes 12.3 % (0.0-10.0); %Neutrophils 72.9 % (42.0-75.0); Anisocytosis SLIGHT = 6-15 cells (100X) (0-5/hpf); Hypochromia SLIGHT = 6-15 cells (100X) (0-5/hpf); MDiff Complete? YES; Polychromasia SLIGHT = 2-3 cells (100X) (0-2/hpf)
[2020-07-14] MEDS: Multivit, Therapeutic 1 TAB PO SCH (08:02)
[2020-07-14] MEDS: Calcium Carbonate 600 MG + Vit D TAB PO SCH ×2 (08:02→16:16)
[2020-07-14] MEDS: Saccharomyces boulardii 250 MG CAP PO SCH (08:02)
[2020-07-15] MEDS: Mometasone 100 MCG/Formoterol 5 MCG 120 PUFF INHALER INH SCH (06:36)
[2020-07-15 08:04] VITALS: BP 131/72; TEMP 97.8
[2020-07-15 08:16] LABS: Hemoglobin 7.9 g/dL (14.0-18.0)
[2020-07-15] MEDS: Saccharomyces boulardii 250 MG CAP PO SCH (08:21)
[2020-07-15] MEDS: Calcium Carbonate 600 MG + Vit D TAB PO SCH ×2 (08:21→16:52)
[2020-07-15] MEDS: Multivit, Therapeutic 1 TAB PO SCH (08:21)
[2020-07-15] MEDS: Acetaminophen 325 MG TAB PO PRN (08:25)
== END 2020-07-15 19:45 | DRG 813 ==
LOC: ERS 10:26 → T4-A 12:26 → INTOOBSV 12:26 → OBSVTOIN 07-12 10:04
PROVIDERS: ADMIT Family Medicine; ATTEND Internal Medicine
DX: D68.32 Hemorrhagic disorder due to extrinsic circulating anticoagulants (principal); K91.840 Postprocedural hemorrhage of a digestive system organ or structure following a digestive system procedure; Z68.42 Body mass index [BMI] 45.0-49.9, adult; D62 Acute posthemorrhagic anemia; I48.20 Chronic atrial fibrillation, unspecified; K63.5 Polyp of colon; I10 Essential (primary) hypertension; Y83.8 Other surgical procedures as the cause of abnormal reaction of the patient, or of later complication, without mention of misadventure at the time of the procedure; E66.01 Morbid (severe) obesity due to excess calories; Z79.01 Long term (current) use of anticoagulants; Z79.84 Long term (current) use of oral hypoglycemic drugs
CPT/HCPCS: 36415; 36430; 80048; 80053; 83605; 84484; 85014; 85018; 85025; 85610; 85730; 86850; 86900; 86901; 96374; 96375; 99285; C9113; G0378; J2916; J7050; P9016

== ENCOUNTER 2022-04-20 19:52 | Inpatient (IN) | payer MEDICARE, MEDICAID ==
[~2022-04-20 19:52] MED LIST: Iopamidol-370 76% 500 ML 1 ML ONE
[2022-04-20] MEDS ORDERED: Morphine 2 MG/ML VIAL ONE ×2 (20:41→22:06)
[2022-04-20] MEDS ORDERED: Piperacillin/Tazobactam 4.5 GM in Sodium Chloride 0.9% 100 ML IVPB SCH (21:00)
[2022-04-20] MEDS ORDERED: VANCOMYCIN 2 GRAM/500 ML BAG 2 GM in Premix Bag 1 BAG IVPB SCH (21:00)
[2022-04-20 21:08] LABS: #Lymphocytes 0.6 thou/uL (1.20-3.40); #Monocytes 1.4 thou/uL (0.11-0.59); #Neutrophils 14.4 thou/uL (1.40-6.50); %Basophils 0.1 % (0.0-1.0); %Eosinophils 0.2 % (0.0-10.0); %Lymphocytes 3.3 % (21.0-51.0); %Monocytes 8.7 % (0.0-10.0); %Neutrophils 87.8 % (42.0-75.0); Hemoglobin 12.9 g/dL (14.0-18.0); Mean Corpuscular HGB CONC 32.9 g/dL (32.0-36.0); Mean Corpuscular Hemoglobin 31.6 pg (27.0-31.0); Mean Corpuscular Volume 96.2 fl (78.0-98.0); Mean Platelet Volume 7.4 fL (7.4-10.4); Platelet Count 300 10x3/uL (130-400); RBC Distribution Width 12.4 % (11.5-14.5); Red Blood Cell (RBC) Count 4.07 mill/uL (4.70-6.10); White Blood Cell (WBC) Count 16.4 10x3/uL (4.8-10.8)
[2022-04-20 21:31] LABS: ALT (SGPT) 56 U/L (8-55); AST (SGOT) 31 U/L (5-34); Albumin 3.7 g/dL (3.4-4.8); Alkaline Phosphatase 74 U/L (40-110); Anion Gap 16 mmol/L (10-20); BUN (Urea Nitrogen) 15 mg/dL (8.4-25.7); Bilirubin, Total 1.1 mg/dL (0.2-1.2); Calc. Creatinine Clearance 0 mL/min (70-130); Calcium 8.9 mg/dL (7.8-10.44); Carbon Dioxide 24 mmol/L (23-31); Chloride 99 mmol/L (98-107); Estimated GFR 94; Globulin 3.7 g/dL (2.4-3.5); Glucose 141 mg/dL (83-110); Lipase 14 U/L (8-78); Potassium 3.9 mmol/L (3.5-5.1); Protein, Total 7.4 g/dL (5.8-8.1); Sodium 135 mmol/L (136-145)
[2022-04-21 00:42] LABS: Bilirubin Negative (Negative); Blood, Urine 2+ (Negative); Clarity Clear (Clear); Glucose, Urine (Dipstick) Normal (Negative); Ketone, Urine 20 mg/dL (Negative); Leukocyte Negative Leu/uL (Negative); Nitrite Negative (Negative); Protein, Urine (Dipstick) 50 mg/dL (Neg-Trace); Urobilinogen Normal mg/dL (Less than 2); pH, Urine 6.5 (5.0-9.0)
[2022-04-21 00:44] LABS: Specific Gravity, Urine 1.061 (1.002-1.036)
[2022-04-21 00:50] LABS: Bacteria/HPF Rare-Few HPF (None Seen); RBC/HPF 0-3 HPF (0-3); Squamous Epithelial 0-3 HPF (0-3); WBC/HPF 0-3 HPF (0-3)
[2022-04-21] MEDS ORDERED: Lactated Ringer's 1,000 ML IV SCH (01:30)
[2022-04-21] MEDS ORDERED: Ondansetron ODT 4 MG TAB SL PRN (01:30)
[2022-04-21] MEDS ORDERED: Ondansetron PF 4 MG/2 ML Vial IVP PRN (01:30)
[2022-04-21] MEDS ORDERED: Acetaminophen 325 MG TAB PO PRN (01:30)
[2022-04-21 02:51] LABS: SARS-CoV-2 NAA Rapid Test Not Detected (NotDetected)
[2022-04-21] MEDS ORDERED: Acetaminophen 650 MG Suppository PR PRN (04:03)
[2022-04-21] MEDS ORDERED: Pantoprazole 40 MG VIAL IVP SCH (04:15)
[2022-04-21] MEDS: Piperacillin/Tazobactam 3.375 GM in Sodium Chloride 0.9% 100 ML IVPB SCH ×3 (04:38→21:22)
[2022-04-21] MEDS: Sodium Chloride 0.9% 1,000 ML IV SCH ×3 (05:14→19:57)
[2022-04-21] MEDS: Morphine 4 MG/ML VIAL SLOW IVP PRN ×2 (05:14→09:29)
[2022-04-21] MEDS ORDERED: VANCOMYCIN 2 GRAM/500 ML BAG 2 GM in Premix Bag 1 BAG IVPB SCH (09:00)
[2022-04-21] MEDS ORDERED: VANCOMYCIN 1.25 GM/250 ML BAG IVPB SCH (09:00)
[2022-04-21] MEDS ORDERED: Ketorolac Tromethamine 30 MG/ML VIAL IVP PRN (11:59)
[2022-04-21] MEDS ORDERED: Ketorolac Tromethamine 30 MG/ML VIAL IVP SCH (12:30)
[2022-04-21] MEDS ORDERED: fentaNYL PF 100 MCG/2 ML SYRINGE ONE (16:18)
[2022-04-21] MEDS ORDERED: SUGAMMADEX SODIUM 200 MG/2 ML VIAL ONE (16:18)
[2022-04-21] MEDS ORDERED: Bupivacaine HCl 0.5%/Epinephrine 1:200,000/PF 30 ml Vial ONE (16:34)
[2022-04-21] MEDS ORDERED: Midazolam HCl 2 mg/2 ml Vial ONE (16:50)
[2022-04-21] MEDS ORDERED: Ventilator Sedation Protocol FS PRN (17:16)
[2022-04-21] MEDS ORDERED: Electrolyte Replacement Protocol 1 EACH FS PRN (17:16)
[2022-04-21] MEDS ORDERED: PROPOFOL 200 MG/20 ML VIAL ONE (17:20)
[2022-04-21] MEDS ORDERED: Rocuronium Bromide 10 MG/ML (10ML VIAL) ONE (17:20)
[2022-04-21] MEDS ORDERED: Metoprolol Tartrate 5 MG/5 ML VIAL ONE (17:20)
[2022-04-21] MEDS ORDERED: Succinylcholine Chloride 100 MG/5 ML SYRINGE FS ONE (17:20)
[2022-04-21] MEDS ORDERED: Lidocaine 1% PF 5 ML VIAL ONE (17:20)
[2022-04-21] MEDS ORDERED: PHENYLEPHRINE-NS 100 MCG/ML 10 ML SYRINGE ONE (17:20)
[2022-04-21] MEDS ORDERED: DISCONTINUE PREVIOUS NARCOTIC PAIN MEDICATIONS AND BENZODIAZEPINES FS PRN (17:51)
[2022-04-21] MEDS ORDERED: Fentanyl BOLUS 250 ML IVPB PRN (18:00)
[2022-04-21] MEDS ORDERED: Lorazepam 2 MG/ML VIAL SLOW IVP PRN (18:00)
[2022-04-21] MEDS ORDERED: Morphine 4 MG/ML VIAL SLOW IVP PRN (18:00)
[2022-04-21] MEDS ORDERED: Propofol BOLUS 1,000 MG/100 ML VIAL IV PRN (18:00)
[2022-04-21] MEDS ORDERED: Fentanyl CADD 100 ML IV SCH (18:00)
[2022-04-21] MEDS ORDERED: Electrolyte Replacement Protocol FS PRN (18:15)
[2022-04-21] MEDS: Ipratropium/Albuterol 3 ML NEB NEB SCH ×2 (18:57→22:32)
[2022-04-21 19:57] LABS: Actual Bicarbonate (HCO3a) 22.1 mEq/L (22-28); Base Excess (BEa) -3.4 mEq/L (-2.0 to +3.0); CO2 Tension 41.6 mmHg (35.0-45.0); Calcium, Ionized (arterial) 1.12 mmol/L (1.12-1.30); Hemoglobin (Hb) 12.3 g/dL (14.0-18.0); Potassium - ABG Lab 3.92 mmol/L (3.70-5.30); pH, Arterial 7.34 (7.35-7.45)
[2022-04-21] MEDS: Propofol 1,000 MG/100 ML VIAL IV PRN (19:57)
[2022-04-21 20:30] LABS: Puncture Site LBA
[2022-04-21] MEDS ORDERED: Sodium Chloride 0.9% 500 ML IV SCH (20:30)
[2022-04-21] MEDS ORDERED: Fentanyl CADD 100 ML ONE (20:52)
[2022-04-21] MEDS ORDERED: NOREPINEPHRINE 8 MG/250 ML-D5W 250 ML IVPB SCH (21:00)
[2022-04-22] MEDS: Propofol 1,000 MG/100 ML VIAL IV PRN ×2 (00:59→06:49)
[2022-04-22] MEDS: Ipratropium/Albuterol 3 ML NEB NEB SCH ×6 (02:48→22:28)
[2022-04-22] MEDS: Sodium Chloride 0.9% 1,000 ML IV SCH ×3 (03:59→17:24)
[2022-04-22 04:19] LABS: #Lymphocytes 0.9 thou/uL (1.20-3.40); #Monocytes 1.8 thou/uL (0.11-0.59); #Neutrophils 14.7 thou/uL (1.40-6.50); %Basophils 0.1 % (0.0-1.0); %Eosinophils 0.1 % (0.0-10.0); %Lymphocytes 5.3 % (21.0-51.0); %Monocytes 10.3 % (0.0-10.0); %Neutrophils 84.2 % (42.0-75.0); Hemoglobin 10.1 g/dL (14.0-18.0); Mean Corpuscular HGB CONC 31.7 g/dL (32.0-36.0); Mean Corpuscular Hemoglobin 31.3 pg (27.0-31.0); Mean Corpuscular Volume 98.6 fl (78.0-98.0); Platelet Count 274 10x3/uL (130-400); RBC Distribution Width 12.4 % (11.5-14.5); Red Blood Cell (RBC) Count 3.22 mill/uL (4.70-6.10); White Blood Cell (WBC) Count 17.4 10x3/uL (4.8-10.8)
[2022-04-22 04:37] LABS: ALT (SGPT) 46 U/L (8-55); AST (SGOT) 61 U/L (5-34); Albumin 2.4 g/dL (3.4-4.8); Alkaline Phosphatase 55 U/L (40-110); Anion Gap 12 mmol/L (10-20); BUN (Urea Nitrogen) 18 mg/dL (8.4-25.7); Bilirubin, Total 0.8 mg/dL (0.2-1.2); Calc. Creatinine Clearance 178 mL/min (70-130); Calcium 7.8 mg/dL (7.8-10.44); Carbon Dioxide 21 mmol/L (23-31); Chloride 106 mmol/L (98-107); Estimated GFR 92; Globulin 3.2 g/dL (2.4-3.5); Glucose 135 mg/dL (83-110); Magnesium 2.3 mg/dL (1.6-2.6); Potassium 3.7 mmol/L (3.5-5.1); Protein, Total 5.6 g/dL (5.8-8.1); Sodium 135 mmol/L (136-145)
[2022-04-22] MEDS: Piperacillin/Tazobactam 3.375 GM in Sodium Chloride 0.9% 100 ML IVPB SCH ×3 (05:20→20:44)
[2022-04-22 08:09] LABS: Actual Bicarbonate (HCO3a) 22.1 mEq/L (22-28); CO2 Tension 39.3 mmHg (35.0-45.0); Carboxyhemoglobin (COHb) 0.5 gm% (0.0-3.0); Hemoglobin (Hb) 11.7 g/dL (14.0-18.0); O2 Tension (PaO2), arterial 111.3 mmHg (> 70.0); Potassium - ABG Lab 3.67 mmol/L (3.70-5.30); pH, Arterial 7.37 (7.35-7.45)
[2022-04-22] MEDS: Pantoprazole 40 MG VIAL IVP SCH ×2 (09:38→09:39)
[2022-04-22] MEDS ORDERED: DC Sedation Protocol FS SCH (11:21)
[2022-04-22] MEDS: Morphine 4 MG/ML VIAL SLOW IVP PRN (20:45)
[2022-04-23] MEDS: Sodium Chloride 0.9% 1,000 ML IV SCH ×2 (00:05→14:07)
[2022-04-23] MEDS: Diltiazem 125 MG in Sodium Chloride 0.9% 100 ML IVPB SCH ×3 (01:00→19:03)
[2022-04-23] MEDS: Ipratropium/Albuterol 3 ML NEB NEB SCH ×6 (02:59→22:47)
[2022-04-23 04:52] LABS: #Lymphocytes 1.1 thou/uL (1.20-3.40); #Monocytes 1.4 thou/uL (0.11-0.59); #Neutrophils 10.4 thou/uL (1.40-6.50); %Basophils 0.1 % (0.0-1.0); %Eosinophils 0.4 % (0.0-10.0); %Lymphocytes 8.2 % (21.0-51.0); %Neutrophils 80.4 % (42.0-75.0); Hemoglobin 9.3 g/dL (14.0-18.0); Mean Corpuscular HGB CONC 31.7 g/dL (32.0-36.0); Mean Corpuscular Hemoglobin 31.2 pg (27.0-31.0); Mean Corpuscular Volume 98.3 fl (78.0-98.0); Mean Platelet Volume 8.1 fL (7.4-10.4); Platelet Count 275 10x3/uL (130-400); RBC Distribution Width 12.3 % (11.5-14.5); Red Blood Cell (RBC) Count 2.98 mill/uL (4.70-6.10); White Blood Cell (WBC) Count 12.9 10x3/uL (4.8-10.8)
[2022-04-23 05:12] LABS: ALT (SGPT) 44 U/L (8-55); AST (SGOT) 57 U/L (5-34); Albumin 2.5 g/dL (3.4-4.8); Alkaline Phosphatase 50 U/L (40-110); Anion Gap 11 mmol/L (10-20); BUN (Urea Nitrogen) 14 mg/dL (8.4-25.7); Bilirubin, Total 0.5 mg/dL (0.2-1.2); Calc. Creatinine Clearance 221 mL/min (70-130); Calcium 7.7 mg/dL (7.8-10.44); Carbon Dioxide 22 mmol/L (23-31); Chloride 108 mmol/L (98-107); Estimated GFR 98; Globulin 3.1 g/dL (2.4-3.5); Glucose 110 mg/dL (83-110); Potassium 3.4 mmol/L (3.5-5.1); Protein, Total 5.6 g/dL (5.8-8.1); Sodium 138 mmol/L (136-145)
[2022-04-23] MEDS: Piperacillin/Tazobactam 3.375 GM in Sodium Chloride 0.9% 100 ML IVPB SCH ×3 (05:20→20:37)
[2022-04-23] MEDS: Pantoprazole 40 MG VIAL IVP SCH ×2 (11:25→11:29)
[2022-04-23] MEDS: Potassium Chloride 20 MEQ in Premix Bag 1 BAG IVPB SCH ×2 (11:35→11:59)
[2022-04-23] MEDS ORDERED: Non-Formulary Item 1 EACH (Diltiazem Hcl [Cardizem] 60 MG Tab) PO SCH (15:00)
[2022-04-23] MEDS ORDERED: diphenhydrAMINE 30 GM TUBE TOP PRN (16:45)
[2022-04-23] MEDS: Melatonin 3 MG TAB PO SCH (20:37)
[2022-04-24] MEDS: Ipratropium/Albuterol 3 ML NEB NEB SCH ×6 (03:33→22:16)
[2022-04-24] MEDS: Sodium Chloride 0.9% 1,000 ML IV SCH ×2 (04:23→17:17)
[2022-04-24 04:36] LABS: #Eosinphils 0.1 thou/uL (0.0-0.7); #Monocytes 1.2 thou/uL (0.11-0.59); #Neutrophils 7.6 thou/uL (1.40-6.50); %Basophils 0.2 % (0.0-1.0); %Monocytes 11.7 % (0.0-10.0); %Neutrophils 77.1 % (42.0-75.0); Hemoglobin 8.7 g/dL (14.0-18.0); Mean Corpuscular HGB CONC 32.2 g/dL (32.0-36.0); Mean Corpuscular Hemoglobin 31.8 pg (27.0-31.0); Mean Corpuscular Volume 98.6 fl (78.0-98.0); Mean Platelet Volume 7.6 fL (7.4-10.4); Platelet Count 301 10x3/uL (130-400); RBC Distribution Width 12.4 % (11.5-14.5); Red Blood Cell (RBC) Count 2.75 mill/uL (4.70-6.10); White Blood Cell (WBC) Count 9.9 10x3/uL (4.8-10.8)
[2022-04-24 04:57] LABS: ALT (SGPT) 52 U/L (8-55); AST (SGOT) 52 U/L (5-34); Albumin 2.3 g/dL (3.4-4.8); Alkaline Phosphatase 50 U/L (40-110); Anion Gap 6 mmol/L (10-20); BUN (Urea Nitrogen) 14 mg/dL (8.4-25.7); Bilirubin, Total 0.5 mg/dL (0.2-1.2); Calc. Creatinine Clearance 205 mL/min (70-130); Calcium 8.1 mg/dL (7.8-10.44); Carbon Dioxide 23 mmol/L (23-31); Chloride 111 mmol/L (98-107); Estimated GFR 95; Globulin 3.2 g/dL (2.4-3.5); Glucose 135 mg/dL (83-110); Potassium 3.9 mmol/L (3.5-5.1); Protein, Total 5.5 g/dL (5.8-8.1); Sodium 136 mmol/L (136-145)
[2022-04-24] MEDS: Piperacillin/Tazobactam 3.375 GM in Sodium Chloride 0.9% 100 ML IVPB SCH ×2 (06:00→17:19)
[2022-04-24] MEDS: Diltiazem 125 MG in Sodium Chloride 0.9% 100 ML IVPB SCH ×3 (06:00→23:42)
[2022-04-24] MEDS: Mometasone 100 MCG/Formoterol 5 MCG 120 PUFF INHALER INH SCH ×2 (06:54→18:55)
[2022-04-24] MEDS: Multivit, Therapeutic 1 TAB PO SCH (11:53)
[2022-04-24] MEDS: Pantoprazole 40 MG VIAL IVP SCH (11:54)
[2022-04-24] MEDS: Calcium Carbonate 600 MG + Vit D TAB PO SCH ×2 (11:54→18:17)
[2022-04-24] MEDS: Aspirin Chewable 81 MG TAB PO SCH (11:54)
[2022-04-24] MEDS: Melatonin 3 MG TAB PO SCH (20:45)
[2022-04-25] MEDS: Ipratropium/Albuterol 3 ML NEB NEB SCH ×6 (01:46→22:19)
[2022-04-25] MEDS: Morphine 4 MG/ML VIAL SLOW IVP PRN (01:57)
[2022-04-25 04:59] LABS: #Eosinphils 0.2 thou/uL (0.0-0.7); #Lymphocytes 1.1 thou/uL (1.20-3.40); #Neutrophils 6.3 thou/uL (1.40-6.50); %Basophils 0.3 % (0.0-1.0); %Eosinophils 2.1 % (0.0-10.0); %Lymphocytes 12.2 % (21.0-51.0); %Monocytes 11.4 % (0.0-10.0); %Neutrophils 73.9 % (42.0-75.0); Hemoglobin 8.7 g/dL (14.0-18.0); Mean Corpuscular HGB CONC 32.2 g/dL (32.0-36.0); Mean Corpuscular Hemoglobin 31.3 pg (27.0-31.0); Mean Corpuscular Volume 97.1 fl (78.0-98.0); Mean Platelet Volume 7.6 fL (7.4-10.4); Platelet Count 301 10x3/uL (130-400); RBC Distribution Width 12.4 % (11.5-14.5); Red Blood Cell (RBC) Count 2.76 mill/uL (4.70-6.10); White Blood Cell (WBC) Count 8.6 10x3/uL (4.8-10.8)
[2022-04-25] MEDS: Sodium Chloride 0.9% 1,000 ML IV SCH ×2 (05:10→19:23)
[2022-04-25] MEDS: Mometasone 100 MCG/Formoterol 5 MCG 120 PUFF INHALER INH SCH ×2 (07:48→18:45)
[2022-04-25] MEDS: Multivit, Therapeutic 1 TAB PO SCH (09:44)
[2022-04-25] MEDS: Calcium Carbonate 600 MG + Vit D TAB PO SCH ×2 (09:45→16:43)
[2022-04-25] MEDS: Aspirin Chewable 81 MG TAB PO SCH (09:45)
[2022-04-25] MEDS: Acetaminophen 325 MG TAB PO PRN (14:34)
[2022-04-25] MEDS ORDERED: Rivaroxaban 10 MG TAB PO SCH (17:00)
[2022-04-25] MEDS: Melatonin 3 MG TAB PO SCH (22:32)
[2022-04-26] MEDS: Ipratropium/Albuterol 3 ML NEB NEB SCH ×3 (01:36→13:31)
[2022-04-26] MEDS: Sodium Chloride 0.9% 1,000 ML IV SCH ×2 (06:02→20:42)
[2022-04-26] MEDS: Mometasone 100 MCG/Formoterol 5 MCG 120 PUFF INHALER INH SCH ×2 (07:39→18:49)
[2022-04-26] MEDS: Calcium Carbonate 600 MG + Vit D TAB PO SCH ×2 (09:14→16:25)
[2022-04-26] MEDS: Multivit, Therapeutic 1 TAB PO SCH (09:14)
[2022-04-26] MEDS: Aspirin Chewable 81 MG TAB PO SCH (09:14)
[2022-04-26] MEDS ORDERED: Ipratropium/Albuterol 3 ML NEB NEB PRN (11:14)
[2022-04-26] MEDS: Rivaroxaban 10 MG TAB PO SCH (18:14)
[2022-04-26] MEDS: Melatonin 3 MG TAB PO SCH (20:41)
[2022-04-26] MEDS: Acetaminophen 325 MG TAB PO PRN (23:38)
[2022-04-27] MEDS: Acetaminophen 325 MG TAB PO PRN ×2 (06:39→21:03)
[2022-04-27] MEDS: Mometasone 100 MCG/Formoterol 5 MCG 120 PUFF INHALER INH SCH ×2 (07:40→19:01)
[2022-04-27] MEDS: Multivit, Therapeutic 1 TAB PO SCH (08:30)
[2022-04-27] MEDS: Calcium Carbonate 600 MG + Vit D TAB PO SCH ×2 (08:30→18:03)
[2022-04-27] MEDS: Aspirin Chewable 81 MG TAB PO SCH (08:30)
[2022-04-27] MEDS: Sodium Chloride 0.9% 1,000 ML IV SCH ×2 (09:35→21:08)
[2022-04-27] MEDS: Rivaroxaban 10 MG TAB PO SCH (18:03)
[2022-04-27] MEDS: Melatonin 3 MG TAB PO SCH (21:03)
[2022-04-28] MEDS: Acetaminophen 325 MG TAB PO PRN (04:17)
[2022-04-28] MEDS: Mometasone 100 MCG/Formoterol 5 MCG 120 PUFF INHALER INH SCH ×2 (07:17→18:56)
[2022-04-28] MEDS: Aspirin Chewable 81 MG TAB PO SCH (08:18)
[2022-04-28] MEDS: Calcium Carbonate 600 MG + Vit D TAB PO SCH ×2 (08:19→16:08)
[2022-04-28] MEDS: Multivit, Therapeutic 1 TAB PO SCH (08:19)
[2022-04-28] MEDS: Sodium Chloride 0.9% 1,000 ML IV SCH (13:35)
[2022-04-28] MEDS: Rivaroxaban 10 MG TAB PO SCH (16:08)
[2022-04-28] MEDS: Melatonin 3 MG TAB PO SCH (20:49)
[2022-04-29] MEDS: Sodium Chloride 0.9% 1,000 ML IV SCH ×2 (04:10→16:49)
[2022-04-29] MEDS: Mometasone 100 MCG/Formoterol 5 MCG 120 PUFF INHALER INH SCH ×2 (07:05→19:00)
[2022-04-29] MEDS: Calcium Carbonate 600 MG + Vit D TAB PO SCH ×2 (09:59→17:42)
[2022-04-29] MEDS: Multivit, Therapeutic 1 TAB PO SCH (10:00)
[2022-04-29] MEDS: Aspirin Chewable 81 MG TAB PO SCH (10:00)
[2022-04-29] MEDS: Rivaroxaban 10 MG TAB PO SCH (17:42)
[2022-04-29] MEDS: Melatonin 3 MG TAB PO SCH (21:18)
[2022-04-30] MEDS: Sodium Chloride 0.9% 1,000 ML IV SCH ×3 (06:13→20:51)
[2022-04-30] MEDS: Mometasone 100 MCG/Formoterol 5 MCG 120 PUFF INHALER INH SCH ×2 (07:31→19:31)
[2022-04-30] MEDS: Aspirin Chewable 81 MG TAB PO SCH (09:15)
[2022-04-30] MEDS: Multivit, Therapeutic 1 TAB PO SCH (09:15)
[2022-04-30] MEDS: Calcium Carbonate 600 MG + Vit D TAB PO SCH ×2 (09:15→16:20)
[2022-04-30] MEDS: Rivaroxaban 10 MG TAB PO SCH (16:20)
[2022-04-30] MEDS: Melatonin 3 MG TAB PO SCH (20:51)
[2022-05-01] MEDS: Acetaminophen 325 MG TAB PO PRN (04:03)
[2022-05-01] MEDS: Mometasone 100 MCG/Formoterol 5 MCG 120 PUFF INHALER INH SCH ×2 (08:00→18:58)
[2022-05-01 08:43] LABS: #Eosinphils 0.2 thou/uL (0.0-0.7); #Lymphocytes 0.9 thou/uL (1.20-3.40); #Monocytes 0.8 thou/uL (0.11-0.59); #Neutrophils 6.2 thou/uL (1.40-6.50); %Basophils 0.3 % (0.0-1.0); %Eosinophils 2.7 % (0.0-10.0); %Monocytes 9.8 % (0.0-10.0); %Neutrophils 76.2 % (42.0-75.0); Hemoglobin 10.5 g/dL (14.0-18.0); Mean Corpuscular HGB CONC 31.3 g/dL (32.0-36.0); Mean Corpuscular Hemoglobin 30.4 pg (27.0-31.0); Mean Corpuscular Volume 97.4 fl (78.0-98.0); Mean Platelet Volume 7.2 fL (7.4-10.4); Platelet Count 512 10x3/uL (130-400); Red Blood Cell (RBC) Count 3.45 mill/uL (4.70-6.10); White Blood Cell (WBC) Count 8.1 10x3/uL (4.8-10.8)
[2022-05-01] MEDS: Multivit, Therapeutic 1 TAB PO SCH (09:03)
[2022-05-01 09:04] LABS: Anion Gap 13 mmol/L (10-20); BUN (Urea Nitrogen) 7 mg/dL (8.4-25.7); Calc. Creatinine Clearance 218 mL/min (70-130); Calcium 8.7 mg/dL (7.8-10.44); Carbon Dioxide 27 mmol/L (23-31); Chloride 101 mmol/L (98-107); Estimated GFR 95; Glucose 127 mg/dL (83-110); Potassium 3.8 mmol/L (3.5-5.1); Sodium 137 mmol/L (136-145)
[2022-05-01] MEDS: Calcium Carbonate 600 MG + Vit D TAB PO SCH ×2 (09:04→16:20)
[2022-05-01] MEDS: Aspirin Chewable 81 MG TAB PO SCH (09:04)
[2022-05-01 13:53] VITALS: BMI 57.6
[2022-05-01] MEDS: Rivaroxaban 10 MG TAB PO SCH (16:20)
[2022-05-01] MEDS: Melatonin 3 MG TAB PO SCH (20:34)
[2022-05-01] MEDS: Sodium Chloride 0.9% 1,000 ML IV SCH (23:55)
[2022-05-02] MEDS: Mometasone 100 MCG/Formoterol 5 MCG 120 PUFF INHALER INH SCH (08:04)
[2022-05-02] MEDS: Aspirin Chewable 81 MG TAB PO SCH (09:16)
[2022-05-02] MEDS: Calcium Carbonate 600 MG + Vit D TAB PO SCH (09:16)
[2022-05-02] MEDS: Multivit, Therapeutic 1 TAB PO SCH (09:16)
[2022-05-02] MEDS: Sodium Chloride 0.9% 1,000 ML IV SCH (10:46)
[2022-05-02 11:23] VITALS: TEMP 97.7
[2022-05-02 11:40] VITALS: BP 135/76
== END 2022-05-02 18:25 | DRG 853 ==
LOC: ERS 19:52 → T4-B 23:28 → OBSVTOIN 04-21 04:57 → CCU 04-21 19:03 → 2NO 04-23 19:50
PROVIDERS: ADMIT Internal Medicine; ATTEND Internal Medicine
PROC: 0FT44ZZ Resection of Gallbladder, Percutaneous Endoscopic Approach (ICD-10-PCS; principal; 2022-04-21)
PROC: 02HV33Z Insertion of Infusion Device into Superior Vena Cava, Percutaneous Approach (ICD-10-PCS; 2022-04-21)
PROC: B548ZZA Ultrasonography of Superior Vena Cava, Guidance (ICD-10-PCS; 2022-04-21)
PROC: 5A1935Z Respiratory Ventilation, Less than 24 Consecutive Hours (ICD-10-PCS; 2022-04-21)
PROC: 3E03329 Introduction of Other Anti-infective into Peripheral Vein, Percutaneous Approach (ICD-10-PCS; 2022-04-21)
PROC: 4A133R1 Monitoring of Arterial Saturation, Peripheral, Percutaneous Approach (ICD-10-PCS; 2022-04-21)
PROC: 5A09357 Assistance with Respiratory Ventilation, Less than 24 Consecutive Hours, Continuous Positive Airway Pressure (ICD-10-PCS; 2022-04-22)
DX: A41.9 Sepsis, unspecified organism (principal); J95.821 Acute postprocedural respiratory failure; K80.12 Calculus of gallbladder with acute and chronic cholecystitis without obstruction; I48.20 Chronic atrial fibrillation, unspecified; Z68.43 Body mass index [BMI] 50.0-59.9, adult; Z20.822 Contact with and (suspected) exposure to COVID-19; E66.01 Morbid (severe) obesity due to excess calories; I10 Essential (primary) hypertension; G47.33 Obstructive sleep apnea (adult) (pediatric); K82.A1 Gangrene of gallbladder in cholecystitis; D64.9 Anemia, unspecified; I87.2 Venous insufficiency (chronic) (peripheral); Z78.1 Physical restraint status; Z79.899 Other long term (current) drug therapy; Z79.51 Long term (current) use of inhaled steroids; Z79.82 Long term (current) use of aspirin; Z98.890 Other specified postprocedural states; Z87.891 Personal history of nicotine dependence
CPT/HCPCS: 36415; 36600; 71045; 74177; 76705; 80048; 80053; 81003; 81015; 82805; 83605; 83690; 83735; 84484; 85025; 86850; 86900; 86901; 87040; 87086; 87811; 88304; 93005; 94002; 94003; 94640; 94660; 96361; 96365; 96366; 96375; 96376; 97139; C1889; C9113; G0378; J1650; J1885; J2250; J2270; J2272; J2543; J2704; J3010; J3370; J3480; J3490; J7030; J7050; J7120; J7620; Q9967; U0002

== ENCOUNTER 2022-06-11 08:15 | Inpatient (IN) | payer MEDICARE ==
[2022-06-11] MEDS ORDERED: Morphine 4 MG/ML VIAL ONE ×2 (08:44→15:32)
[2022-06-11] MEDS ORDERED: Ondansetron PF 4 MG/2 ML Vial ONE (08:44)
[2022-06-11 09:08] LABS: #Lymphocytes 0.6 thou/uL (1.20-3.40); #Monocytes 1.2 thou/uL (0.11-0.59); #Neutrophils 8.1 thou/uL (1.40-6.50); %Eosinophils 0.3 % (0.0-10.0); %Monocytes 11.8 % (0.0-10.0); %Neutrophils 81.9 % (42.0-75.0); Hemoglobin 9.6 g/dL (14.0-18.0); Mean Corpuscular HGB CONC 29.7 g/dL (32.0-36.0); Mean Corpuscular Hemoglobin 26.7 pg (27.0-31.0); Mean Corpuscular Volume 89.8 fl (78.0-98.0); Mean Platelet Volume 6.9 fL (7.4-10.4); Platelet Count 344 10x3/uL (130-400); Red Blood Cell (RBC) Count 3.59 mill/uL (4.70-6.10); White Blood Cell (WBC) Count 9.9 10x3/uL (4.8-10.8)
[2022-06-11 09:26] LABS: ALT (SGPT) 14 U/L (8-55); AST (SGOT) 22 U/L (5-34); Albumin 3.2 g/dL (3.4-4.8); Alkaline Phosphatase 63 U/L (40-110); Anion Gap 14 mmol/L (10-20); BUN (Urea Nitrogen) 15 mg/dL (8.4-25.7); Bilirubin, Total 0.7 mg/dL (0.2-1.2); Calc. Creatinine Clearance 0 mL/min (70-130); Carbon Dioxide 23 mmol/L (23-31); Chloride 100 mmol/L (98-107); Estimated GFR 89; Glucose 111 mg/dL (83-110); Lipase Less than 4 U/L (8-78); Potassium 4.3 mmol/L (3.5-5.1); Protein, Total 7.2 g/dL (5.8-8.1); Sodium 133 mmol/L (136-145)
[2022-06-11 09:27] LABS: Hypochromia SLIGHT = 6-15 cells (100X) (0-5/hpf); MDiff Complete? YES; Platelet Morphology Comment Appears Adequate; Polychromasia SLIGHT = 2-3 cells (100X) (0-2/hpf)
[2022-06-11 16:01] LABS: Bilirubin Negative (Negative); Blood, Urine 2+ (Negative); Clarity Turbid (Clear); Glucose, Urine (Dipstick) Normal (Negative); Ketone, Urine Negative (Negative); Leukocyte 500 Leu/uL (Negative); Nitrite 2+ (Negative); Protein, Urine (Dipstick) 30 mg/dL (Neg-Trace); RBC/HPF Greater than 50 HPF (0-3); Specific Gravity, Urine 1.018 (1.002-1.036); Squamous Epithelial None Seen HPF (0-3); Urobilinogen Normal mg/dL (Less than 2); WBC/HPF Greater than 50 HPF (0-3)
[2022-06-11 16:09] LABS: Bacteria/HPF 4+ HPF (None Seen)
[2022-06-11 17:41] VITALS: BMI 43.4
[2022-06-11] MEDS ORDERED: Acetaminophen 325 MG TAB PO PRN (18:42)
[2022-06-11] MEDS ORDERED: hydrALAZINE 25 MG TAB PO PRN (18:44)
[2022-06-11] MEDS ORDERED: Albuterol 200 PUFF (6.7GM INHALER) INH PRN (19:43)
[2022-06-11] MEDS: Famotidine 20 MG TAB PO SCH (20:15)
[2022-06-11] MEDS: cefTRIAXone\\ROCEPHIN 1 GM in Sodium Chloride 0.9% 100 ML IVPB SCH (20:59)
[2022-06-12] MEDS: Mometasone 100 MCG/Formoterol 5 MCG 120 PUFF INHALER INH SCH ×2 (07:33→18:50)
[2022-06-12] MEDS: HYDROcodone/Acetaminophen 5/325 mg Tablet PO PRN ×2 (08:12→17:57)
[2022-06-12] MEDS: Famotidine 20 MG TAB PO SCH ×2 (08:13→21:11)
[2022-06-12] MEDS: Rivaroxaban 10 MG TAB PO SCH (08:13)
[2022-06-12 08:31] LABS: #Eosinphils 0.1 thou/uL (0.0-0.7); #Monocytes 1.6 thou/uL (0.11-0.59); #Neutrophils 8.3 thou/uL (1.40-6.50); %Basophils 0.3 % (0.0-1.0); %Lymphocytes 9.4 % (21.0-51.0); %Monocytes 14.3 % (0.0-10.0); %Neutrophils 75.1 % (42.0-75.0); Hemoglobin 9.8 g/dL (14.0-18.0); Mean Corpuscular HGB CONC 30.9 g/dL (32.0-36.0); Mean Corpuscular Hemoglobin 27.8 pg (27.0-31.0); Mean Corpuscular Volume 90.1 fl (78.0-98.0); Mean Platelet Volume 7.5 fL (7.4-10.4); Platelet Count 284 10x3/uL (130-400); Red Blood Cell (RBC) Count 3.52 mill/uL (4.70-6.10); White Blood Cell (WBC) Count 11.1 10x3/uL (4.8-10.8)
[2022-06-12 08:58] LABS: Anion Gap 13 mmol/L (10-20); BUN (Urea Nitrogen) 15 mg/dL (8.4-25.7); Calc. Creatinine Clearance 159 mL/min (70-130); Calcium 8.9 mg/dL (7.8-10.44); Carbon Dioxide 24 mmol/L (23-31); Chloride 100 mmol/L (98-107); Estimated GFR 92; Glucose 87 mg/dL (83-110); Potassium 4.7 mmol/L (3.5-5.1); Sodium 132 mmol/L (136-145)
[2022-06-12] MEDS: cefTRIAXone\\ROCEPHIN 1 GM in Sodium Chloride 0.9% 100 ML IVPB SCH (21:11)
[2022-06-13] MEDS: Mometasone 100 MCG/Formoterol 5 MCG 120 PUFF INHALER INH SCH ×2 (07:09→18:59)
[2022-06-13] MEDS: Rivaroxaban 10 MG TAB PO SCH (08:52)
[2022-06-13] MEDS: Famotidine 20 MG TAB PO SCH ×2 (08:52→20:41)
[2022-06-13] MEDS: HYDROcodone/Acetaminophen 5/325 mg Tablet PO PRN ×3 (09:28→20:41)
[2022-06-13] MEDS ORDERED: Morphine 2 MG/ML VIAL SLOW IVP PRN (09:39)
[2022-06-13] MEDS: Lidocaine 4% Patch TD SCH (10:39)
[2022-06-13] MEDS: Ciprofloxacin 500 MG TAB PO SCH (20:43)
[2022-06-13] MEDS: LIDOCAINE Patch Removal TOP SCH (21:37)
[2022-06-14] MEDS: HYDROcodone/Acetaminophen 5/325 mg Tablet PO PRN ×2 (01:00→05:28)
[2022-06-14] MEDS: diphenhydrAMINE 25 MG CAP PO PRN (01:00)
[2022-06-14] MEDS: Ciprofloxacin 500 MG TAB PO SCH ×2 (05:28→20:59)
[2022-06-14] MEDS: Rivaroxaban 10 MG TAB PO SCH (08:31)
[2022-06-14] MEDS: Famotidine 20 MG TAB PO SCH ×2 (08:32→20:59)
[2022-06-14] MEDS: HYDROcodone/Acetaminophen 10/325 mg Tablet PO PRN ×3 (10:18→20:59)
[2022-06-14] MEDS: Lidocaine 4% Patch TD SCH (10:19)
[2022-06-14] MEDS ORDERED: Bisacodyl 5 MG TAB PO SCH (10:45)
[2022-06-14] MEDS: Mometasone 100 MCG/Formoterol 5 MCG 120 PUFF INHALER INH SCH ×2 (10:58→18:38)
[2022-06-14] MEDS: LIDOCAINE Patch Removal TOP SCH (22:00)
[2022-06-15] MEDS: diphenhydrAMINE 25 MG CAP PO PRN ×2 (05:05→20:29)
[2022-06-15] MEDS: Ciprofloxacin 500 MG TAB PO SCH ×2 (05:05→20:29)
[2022-06-15] MEDS: HYDROcodone/Acetaminophen 10/325 mg Tablet PO PRN ×3 (05:05→20:29)
[2022-06-15] MEDS: Mometasone 100 MCG/Formoterol 5 MCG 120 PUFF INHALER INH SCH ×2 (08:04→19:09)
[2022-06-15] MEDS: Rivaroxaban 10 MG TAB PO SCH (08:31)
[2022-06-15] MEDS: Famotidine 20 MG TAB PO SCH ×2 (08:31→20:29)
[2022-06-15] MEDS: Lidocaine 4% Patch TD SCH (09:01)
[2022-06-15] MEDS: Cyclobenzaprine 10 MG TAB PO SCH (20:29)
[2022-06-15] MEDS: LIDOCAINE Patch Removal TOP SCH ×2 (22:00→23:00)
[2022-06-16] MEDS: Ciprofloxacin 500 MG TAB PO SCH (06:20)
[2022-06-16] MEDS: HYDROcodone/Acetaminophen 10/325 mg Tablet PO PRN ×3 (06:20→21:47)
[2022-06-16] MEDS: Mometasone 100 MCG/Formoterol 5 MCG 120 PUFF INHALER INH SCH ×2 (07:38→19:21)
[2022-06-16] MEDS: Famotidine 20 MG TAB PO SCH ×2 (09:10→21:47)
[2022-06-16] MEDS: Rivaroxaban 10 MG TAB PO SCH (09:10)
[2022-06-16] MEDS: Cyclobenzaprine 10 MG TAB PO SCH ×3 (09:10→21:47)
[2022-06-16] MEDS: Lidocaine 4% Patch TD SCH (09:11)
[2022-06-16 15:20] LABS: #Eosinphils 0.2 thou/uL (0.0-0.7); #Lymphocytes 0.7 thou/uL (1.20-3.40); #Monocytes 0.7 thou/uL (0.11-0.59); #Neutrophils 6.6 thou/uL (1.40-6.50); %Basophils 0.2 % (0.0-1.0); %Eosinophils 2.8 % (0.0-10.0); %Lymphocytes 8.3 % (21.0-51.0); %Monocytes 8.9 % (0.0-10.0); %Neutrophils 79.8 % (42.0-75.0); Hemoglobin 10.4 g/dL (14.0-18.0); Mean Corpuscular Hemoglobin 27.8 pg (27.0-31.0); Mean Corpuscular Volume 89.8 fl (78.0-98.0); Mean Platelet Volume 7.1 fL (7.4-10.4); Platelet Count 383 10x3/uL (130-400); RBC Distribution Width 13.8 % (11.5-14.5); Red Blood Cell (RBC) Count 3.74 mill/uL (4.70-6.10); White Blood Cell (WBC) Count 8.3 10x3/uL (4.8-10.8)
[2022-06-16 15:48] LABS: ALT (SGPT) 17 U/L (8-55); AST (SGOT) 21 U/L (5-34); Albumin 2.9 g/dL (3.4-4.8); Alkaline Phosphatase 64 U/L (40-110); Anion Gap 13 mmol/L (10-20); BUN (Urea Nitrogen) 12 mg/dL (8.4-25.7); Bilirubin, Total 0.5 mg/dL (0.2-1.2); Calc. Creatinine Clearance 161 mL/min (70-130); Calcium 9.1 mg/dL (7.8-10.44); Carbon Dioxide 29 mmol/L (23-31); Chloride 98 mmol/L (98-107); Estimated GFR 92; Globulin 4.2 g/dL (2.4-3.5); Glucose 161 mg/dL (83-110); Potassium 4.1 mmol/L (3.5-5.1); Protein, Total 7.1 g/dL (5.8-8.1); Sodium 136 mmol/L (136-145)
[2022-06-16] MEDS ORDERED: Metoprolol Tartrate 50 MG TAB PO SCH (16:45)
[2022-06-16] MEDS: Albuterol 200 PUFF (6.7GM INHALER) INH SCH (19:21)
[2022-06-16] MEDS: LIDOCAINE Patch Removal TOP SCH ×2 (21:47→22:00)
[2022-06-16] MEDS: tiZANidine HCl 4 MG TAB PO SCH (21:47)
[2022-06-17] MEDS: diphenhydrAMINE 25 MG CAP PO PRN (06:09)
[2022-06-17] MEDS ORDERED: Furosemide 40 MG/4 ML VIAL SLOW IVP SCH (07:00)
[2022-06-17] MEDS: Mometasone 100 MCG/Formoterol 5 MCG 120 PUFF INHALER INH SCH ×2 (07:20→19:51)
[2022-06-17] MEDS: Albuterol 200 PUFF (6.7GM INHALER) INH SCH ×3 (07:20→19:51)
[2022-06-17] MEDS: Rivaroxaban 10 MG TAB PO SCH (08:40)
[2022-06-17] MEDS: Cyclobenzaprine 10 MG TAB PO SCH ×2 (08:40→21:54)
[2022-06-17] MEDS: Lidocaine 4% Patch TD SCH ×2 (08:40→08:47)
[2022-06-17] MEDS: tiZANidine HCl 4 MG TAB PO SCH (08:40)
[2022-06-17] MEDS: Famotidine 20 MG TAB PO SCH ×2 (08:40→21:54)
[2022-06-17] MEDS: HYDROcodone/Acetaminophen 10/325 mg Tablet PO PRN (20:13)
[2022-06-17] MEDS: LIDOCAINE Patch Removal TOP SCH (21:57)
[2022-06-18] MEDS ORDERED: Furosemide 40 MG/4 ML VIAL SLOW IVP SCH (07:15)
[2022-06-18 07:21] LABS: Anion Gap 14 mmol/L (10-20); BUN (Urea Nitrogen) 13 mg/dL (8.4-25.7); Calc. Creatinine Clearance 185 mL/min (70-130); Calcium 9.2 mg/dL (7.8-10.44); Carbon Dioxide 27 mmol/L (23-31); Chloride 98 mmol/L (98-107); Estimated GFR 96; Glucose 99 mg/dL (83-110); Potassium 4.3 mmol/L (3.5-5.1); Sodium 135 mmol/L (136-145)
[2022-06-18] MEDS: Mometasone 100 MCG/Formoterol 5 MCG 120 PUFF INHALER INH SCH ×2 (07:45→18:59)
[2022-06-18] MEDS: Albuterol 200 PUFF (6.7GM INHALER) INH SCH ×3 (07:45→19:01)
[2022-06-18] MEDS ORDERED: Furosemide 40 MG TAB PO SCH (08:30)
[2022-06-18] MEDS: Cyclobenzaprine 10 MG TAB PO SCH ×2 (08:42→20:46)
[2022-06-18] MEDS: Rivaroxaban 10 MG TAB PO SCH (08:42)
[2022-06-18] MEDS: Lidocaine 4% Patch TD SCH (08:42)
[2022-06-18] MEDS: Famotidine 20 MG TAB PO SCH ×2 (08:42→20:46)
[2022-06-18] MEDS: LIDOCAINE Patch Removal TOP SCH (21:35)
[2022-06-19 07:23] LABS: Anion Gap 16 mmol/L (10-20); BUN (Urea Nitrogen) 12 mg/dL (8.4-25.7); Calc. Creatinine Clearance 165 mL/min (70-130); Calcium 9.1 mg/dL (7.8-10.44); Carbon Dioxide 28 mmol/L (23-31); Chloride 96 mmol/L (98-107); Estimated GFR 93; Glucose 97 mg/dL (83-110); Potassium 3.9 mmol/L (3.5-5.1); Sodium 136 mmol/L (136-145)
[2022-06-19] MEDS: Mometasone 100 MCG/Formoterol 5 MCG 120 PUFF INHALER INH SCH ×2 (07:36→18:56)
[2022-06-19] MEDS: Albuterol 200 PUFF (6.7GM INHALER) INH SCH ×3 (07:37→18:55)
[2022-06-19] MEDS: Cyclobenzaprine 10 MG TAB PO SCH ×2 (08:50→20:08)
[2022-06-19] MEDS: Rivaroxaban 10 MG TAB PO SCH (08:50)
[2022-06-19] MEDS: Furosemide 40 MG TAB PO SCH (08:50)
[2022-06-19] MEDS: Famotidine 20 MG TAB PO SCH ×2 (08:50→20:08)
[2022-06-19] MEDS: Lidocaine 4% Patch TD SCH (08:51)
[2022-06-19] MEDS: HYDROcodone/Acetaminophen 10/325 mg Tablet PO PRN (14:44)
[2022-06-19] MEDS: LIDOCAINE Patch Removal TOP SCH (22:10)
[2022-06-20] MEDS: HYDROcodone/Acetaminophen 10/325 mg Tablet PO PRN ×3 (00:34→21:04)
[2022-06-20] MEDS: Mometasone 100 MCG/Formoterol 5 MCG 120 PUFF INHALER INH SCH ×2 (06:52→19:05)
[2022-06-20] MEDS: Albuterol 200 PUFF (6.7GM INHALER) INH SCH ×3 (06:52→19:05)
[2022-06-20] MEDS: Bisacodyl 5 MG TAB PO PRN (08:37)
[2022-06-20] MEDS: Rivaroxaban 10 MG TAB PO SCH (08:38)
[2022-06-20] MEDS: Lidocaine 4% Patch TD SCH (08:38)
[2022-06-20] MEDS: Famotidine 20 MG TAB PO SCH ×2 (08:38→21:04)
[2022-06-20] MEDS: Cyclobenzaprine 10 MG TAB PO SCH ×2 (08:38→21:02)
[2022-06-20] MEDS: Furosemide 40 MG TAB PO SCH (08:38)
[2022-06-20] MEDS: LIDOCAINE Patch Removal TOP SCH (21:06)
[2022-06-21] MEDS: Furosemide 40 MG TAB PO SCH (05:18)
[2022-06-21] MEDS: Mometasone 100 MCG/Formoterol 5 MCG 120 PUFF INHALER INH SCH (07:08)
[2022-06-21] MEDS: Albuterol 200 PUFF (6.7GM INHALER) INH SCH ×2 (07:08→13:53)
[2022-06-21] MEDS: Famotidine 20 MG TAB PO SCH (08:22)
[2022-06-21] MEDS: Rivaroxaban 10 MG TAB PO SCH (08:22)
[2022-06-21] MEDS: Bisacodyl 5 MG TAB PO PRN (08:22)
[2022-06-21] MEDS: Cyclobenzaprine 10 MG TAB PO SCH (08:25)
[2022-06-21] MEDS: Lidocaine 4% Patch TD SCH (08:25)
[2022-06-21 12:00] VITALS: BP 119/73; TEMP 98
[2022-06-21 13:25] LABS: Anion Gap 14 mmol/L (10-20); BUN (Urea Nitrogen) 15 mg/dL (8.4-25.7); Calc. Creatinine Clearance 165 mL/min (70-130); Calcium 9.2 mg/dL (7.8-10.44); Carbon Dioxide 30 mmol/L (23-31); Chloride 96 mmol/L (98-107); Estimated GFR 93; Glucose 94 mg/dL (83-110); Potassium 3.9 mmol/L (3.5-5.1); Sodium 136 mmol/L (136-145)
[2022-06-21] MEDS: HYDROcodone/Acetaminophen 10/325 mg Tablet PO PRN (17:38)
== END 2022-06-21 17:56 | DRG 552 ==
LOC: ERS 08:15 → ERHOLD 15:16 → T4-B 16:46 → OBSVTOIN 06-13 09:33
PROVIDERS: ADMIT Internal Medicine; ATTEND Internal Medicine
DX: S32.019A Unspecified fracture of first lumbar vertebra, initial encounter for closed fracture (principal); N39.0 Urinary tract infection, site not specified; Z68.41 Body mass index [BMI] 40.0-44.9, adult; I48.20 Chronic atrial fibrillation, unspecified; E66.01 Morbid (severe) obesity due to excess calories; R53.1 Weakness; W18.30XA Fall on same level, unspecified, initial encounter; I10 Essential (primary) hypertension; D64.9 Anemia, unspecified; Z90.49 Acquired absence of other specified parts of digestive tract; Z79.899 Other long term (current) drug therapy; Z79.01 Long term (current) use of anticoagulants; Z79.82 Long term (current) use of aspirin; Z87.891 Personal history of nicotine dependence; G47.30 Sleep apnea, unspecified; R53.81 Other malaise
CPT/HCPCS: 36415; 36416; 71045; 72128; 72131; 80048; 80053; 81003; 81015; 83690; 83880; 85025; 87077; 87086; 87186; 93005; 94664; 96365; 96374; 96375; 96376; G0378; J0696; J1940; J2270; J2272; J2405; J3490